=== PATIENT | female | born 1965 | race Caucasian/White ===

== ENCOUNTER 2019-07-11 12:37 | Outpatient (CLI) | payer MEDICAID, SELFPAY ==
--- NOTE | 2019-07-11 13:02 | CT_ITS ---
WS: [id number] CT CHEST WITH INTRAVENOUS CONTRAST HISTORY: MALIGNANT NEOPLASM OF UPPER LOBE LEFT BRONCHUS OR LUNG TECHNIQUE: Contiguous 5 mm axial imaging performed on the thorax. Coronal and sagittal reformats are submitted. All CT scans at [facility] use at least one of these dose optimization techniq ues: automated exposure control; mA and/or kV adjustment per patient size (includes targeted exams wh ere dose is matched to clinical indication); or iterative reconstruction. CONTRAST: Visipaque 320; 95 mL IV. DLP: 683.68 mGycm COMPARISON: 09/15/2018 and 08/07/2016 Lungs and central airway: Prior LEFT upper lobectomy. There is mild volume loss in the LEFT lung. Sev ere emphysematous changes. Linear areas of groundglass attenuation beginning in the mid and upper LEF T lung and extending inferiorly along its medial aspect. There is diffuse interstitial thickening and bronchial wall thickening with tree-in-bud airspace disease throughout the LEFT lung which is progre ssed. Subpleural 7 mm nodule is unchanged, image 24 of series 3. Hyperexpanded RIGHT lung. Subpleural 5 mm nodule RIGHT lower lobe, image 22 of series 3 is stable. Perifissural nodule also short the min or fissure measures 10 mm. No change. There are a few scattered benign granulomata. Pleura: Normal. No pleural effusion. Heart and pericardium: Normal size heart. No pericardial effusion. Mediastinum and rafiq: Increase in size of the mediastinal and hilar lymph nodes since 09/15/2018. The l argest lymph node at the RIGHT hilum measures 12 mm. Subcarinal lymph node at 12 mm in diameter. Ther e are numerous small lymph nodes in the anterior mediastinum and along the internal mammary artery th at were not present on the prior study. Increase in the amount of lymphoid tissue at the LEFT hilum. Vessels: Mild atherosclerosis of aorta. Pulmonary artery size is normal. Chest wall and lower neck: No soft tissue masses. Upper abdomen: No metastatic disease identified within the visualized liver. Gallbladder and spleen a re negative. There is a small stable nodule measuring 1.3 cm in the LEFT adrenal gland. No adrenal no dule in the RIGHT. Osseous structures: Increase in thoracic kyphosis. Degenerative disc disease throughout the thoracic spine. No osteoblastic or osteolytic disease. CT/CT chest w con* [id number] IMPRESSION: 1. Status post LEFT upper lobectomy. 2. Diffuse scattered opacifications with interstitial thickening, nodules and tree-in-bud opacification throughout the LEFT lung. The nodules have remained s table but the tree-in-bud airspace disease and groundglass attenuation is new. Favor inflammatory disease but metastatic lymphangitic spread should be about a s a possible etiology. 3. Increase in size and number of the mediastinal and hilar lymph nodes. PET/C T may be necessary to evaluate for recurrent neoplastic disease. 4. No metastatic disease within the visualized liver. 5. Stable LEFT adrenal nodule at 1.3 cm. Nodule stable since 08/07/2016.
[2019-07-11] MEDS: iodixanol 320 mg/mL 100mL Btl IV (13:24)
== END 2019-07-11 12:38 | disposition home or self-care (01) ==
PROVIDERS: Family Provider Family Medicine; PCP Family Medicine; Visit Provider Internal Medicine
DX: C34.12 Malignant neoplasm of upper lobe, left bronchus or lung (principal); Z90.2 Acquired absence of lung [part of]; R91.8 Other nonspecific abnormal finding of lung field; D44.12 Neoplasm of uncertain behavior of left adrenal gland
CPT/HCPCS: 71260; Q9967

== ENCOUNTER 2019-07-11 12:57 | Outpatient (CLI) | payer MEDICAID, SELFPAY ==
--- NOTE | 2019-07-11 13:00 | MR_ITS ---
WS: [id number] MRI THORACIC SPINE without contrast. 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 Slight increase in thoracic kyphosis. Degenerative disc disease and osteophytosis in the mid to lower cervical spine. Signal within the cord remains normal. T1-2: Normal. T2-3: Normal. T3-4: Normal. T4-5: Small central disc protrusion. No stenosis. T5-6: Shallow RIGHT paracentral disc protrusion. No stenosis. T6-7: Central disc protrusion without stenosis. T7-8: Moderate central disc protrusion with effacement of CSF and slight deformity of the ventral th ecal sac. Similar to the prior study. T8-9: Moderate-sized central disc protrusion with contact on the cord. There is also facet joint art hritis causing mild effacement of the posterior lateral CSF. Mild central and RIGHT foraminal stenosi s. T9-10: Osteophytic ridging with effacement of ventral CSF. There is a LEFT paracentral disc protrusi on resulting in mild stenosis. Mild central with moderate foraminal stenosis on the LEFT. T10-11: Small RIGHT paracentral disc protrusion with effacement of CSF. Mild central stenosis. T11-12: No stenosis. Paravertebral soft tissues are negative. MR/MR thoracic spin wo con* [id number] IMPRESSION: 1. Moderate thoracic spondylitic changes. No high-grade stenosis. 2. Multilevel disc protrusions with areas of stenosis and facet arthritis are stable. 3. Most significant disc intrusions are centrally at T7-8 and T8-9. No progres edda since the prior study. 4. Mild central stenosis from T8-9 to T10-11. 5. Moderate LEFT foraminal stenosis at T9-10.
== END 2019-07-11 12:58 | disposition home or self-care (01) ==
LOC: RADWPI 12:58
PROVIDERS: Family Provider Family Medicine; PCP Family Medicine; Visit Provider Licensed Practical Nurse
DX: M51.04 Intervertebral disc disorders with myelopathy, thoracic region (principal); M51.24 Other intervertebral disc displacement, thoracic region; M48.04 Spinal stenosis, thoracic region
CPT/HCPCS: 72146

== ENCOUNTER 2019-09-01 13:01 | Outpatient (CLI) | payer MEDICAID, SELFPAY ==
--- NOTE | 2019-09-01 13:00 | MR_ITS ---
WS: [id number] MRI CERVICAL SPINE HISTORY: M43.02 Spondylolysis, cervical region COMPARISON: 06/18/2012 Straightening of the normal cervical lordosis. No marrow edema or fracture. Advanced degenerative disc disease and disc space narrowing at C5-6 and C6-7 with osteophytes. Craniocervical junction, C1 and C2 relationship, odontoid process and soft tissues are normal. C2-C3: Very shallow central disc protrusion with no stenosis. C3-C4: Mild osteophytic ridging and very shallow central disc protrusion without stenosis. C4-C5: Mild annular disc bulging and osteophytic ridging. No significant stenosis. Very minimal narro wing of the LEFT foramen. C5-C6: Diffuse osteophytic ridging with disc osteophyte complexes bilaterally, LEFT greater than RIGH T. Encroachment upon the ventral thecal sac by osteophyte disease. Anterior and posterior effacement of CSF. There is cord contact centrally and LEFT paracentral by disc osteophyte disease. Moderate yari tral and bilateral foraminal stenosis. C6-C7: Diffuse osteophytic ridging and disc bulging. Contact on the ventral thecal sac with disc oste ophyte complexes extending into the foramen. Moderate central and bilateral foraminal stenosis. There is significant displacement of the nerve roots in the LEFT foramen. C7-T1: Shallow central disc protrusion. Small foraminal osteophytes without significant stenosis. There is a soft tissue nodule just to the RIGHT of the trachea at the thoracic inlet which is been pr esent on prior studies. Stable since 2013. MR/MR cervical spin wo con* [id number] IMPRESSION: 1. Moderate to severe spondylitic changes in the cervical spine. Most signific ant at C5-6 and C6-7. 2. Osteophytic ridging and disc protrusions at C5-6 and C6-7 resulting in mode rate central and bilateral foraminal stenosis. Slightly greater stenosis and di sc osteophyte encroachment into the LEFT foramen. 3. Mild LEFT foraminal narrowing at C4-5.
--- NOTE | 2019-09-01 14:36 | XR_ITS ---
WS: [id number] Thoracic spine, 3 views, 09/01/2019 Clinical Data: THORACIC DISC DZ Comparison: None. Findings: No compression fractures are seen. The disc heights are normal. Osteoarthritic spurring is moderate throughout the thoracic vertebral bodies. The disc heights are no rmal. There are no compression fractures. There is diffuse osteoporosis. The paravertebral areas are unremarkable. XR/XR thoracic spine 3V* [id number] Impression: 1. Diffuse osteoporosis. 2. Mild osteoarthritic change of the thoracic vertebral bodies.
--- NOTE | 2019-09-01 14:36 | XR_ITS ---
WS: [id number] Lateral views of cervical spine in the flexion, extension and neutral positions. 09/01/2019 Clinical Data: CERVICAL PAIN Comparison: None. Findings: There is anterior and posterior osteoarthritic spurring at C5, C6 and C7. Degenerative disc narrowing is present at C5-C6 and C6-C7. No compression fractures are seen. There is no prevertebral soft tiss ue swelling. No subluxation is present. Flexion and extension there is no limitation of motion or sub luxation. XR/XR cervical spine fl/ex [id number] Impression: 1. Osteoarthritis and degenerative disc disease from C5 through C7. 2. Negative for limitation of motion or subluxation on flexion or extension.
== END 2019-09-01 13:02 | disposition home or self-care (01) ==
PROVIDERS: PCP Family Medicine; Visit Provider Licensed Practical Nurse
DX: M43.02 Spondylolysis, cervical region (principal); M51.34 Other intervertebral disc degeneration, thoracic region; M81.0 Age-related osteoporosis without current pathological fracture; M47.812 Spondylosis without myelopathy or radiculopathy, cervical region; M50.323 Other cervical disc degeneration at C6-C7 level; M50.223 Other cervical disc displacement at C6-C7 level; M25.78 Osteophyte, vertebrae
CPT/HCPCS: 72040; 72072; 72141

== ENCOUNTER → 2019-09-27 14:13 | Outpatient (BNVA) | payer MEDICAID, SELFPAY | PROVIDERS: PCP Family Medicine; Visit Provider Family Medicine | DX: R30.0 Dysuria (principal) | CPT/HCPCS: 81000 ==

== ENCOUNTER → 2019-11-17 12:37 | Outpatient (BNVA) | payer MEDICAID, SELFPAY | PROVIDERS: PCP Family Medicine; Referring Provider Licensed Practical Nurse; Visit Provider Anesthesiology Pain Medicine | DX: M50.90 Cervical disc disorder, unspecified, unspecified cervical region (principal); M54.12 Radiculopathy, cervical region; M50.00 Cervical disc disorder with myelopathy, unspecified cervical region; M51.9 Unspecified thoracic, thoracolumbar and lumbosacral intervertebral disc disorder; M48.061 Spinal stenosis, lumbar region without neurogenic claudication; M54.16 Radiculopathy, lumbar region; M51.04 Intervertebral disc disorders with myelopathy, thoracic region; M54.9 Dorsalgia, unspecified | CPT/HCPCS: 99204 ==

== ENCOUNTER → 2019-12-06 12:34 | Outpatient (BNVA) | payer MEDICAID, SELFPAY | PROVIDERS: PCP Family Medicine; Visit Provider Family Medicine | DX: R30.9 Painful micturition, unspecified (principal) | CPT/HCPCS: 81000; 87086 ==

== ENCOUNTER 2019-12-15 12:57 | Outpatient (CLI) | payer MEDICAID, SELFPAY ==
--- NOTE | 2019-12-15 13:22 | CT_ITS ---
WS: [id number] CT scan of the chest with IV contrast, additional two-dimensional coronal and sagittal reconstruction was performed. 12/15/2019 Clinical Data: MALIGNANT NEOPLASM OF LARYNX, LEFT UPPER LOBE Comparison: CT chest, 07/11/2019. DLP: 671.[address] scans at [facility] use at least one of these dose optimization techniques: automat ed exposure control; mA and/or kV adjustment per patient size (includes targeted exams where dose is matched to clinical indication); or iterative reconstruction. Findings: In the right lower lobe posteriorly there is mass measuring 2.1 cm with irregular margins. This was n ot present before and may represent recurrent recurrent carcinoma. The left upper lobe no longer show s groundglass infiltrates. There are still scattered nodules throughout the lungs which are unchanged . There is anterior mediastinal and middle mediastinal adenopathy unchanged. A left upper lobectomy s hows scarring and volume loss. The heart size is normal with no pericardial effusion. No pneumonia or pneumothorax is seen. Trachea bifurcates normally into the bronchi. The pulmonary arterial system an d thoracic aorta demonstrate no abnormalities or dilatations. There is no axillary or significant med iastinal adenopathy. The upper abdomen shows no lesions within the visualized liver. The left adrenal nodule remains uncha nged. The bony thorax shows only osteoarthritis of the thoracic vertebral bodies with no metastatic d isease. CT/CT chest w con* [id number] Impression: 1. 2.1 cm right lower lobe mass which has developed since the prior scan and co uld represent metastatic disease but inflammatory change and atelectasis could also cause this. 2. No change in scattered nodules. 3. Clearing of tree-in-bud airway disease of the left upper lobe. 4. No change in anterior middle mediastinal lymph nodes. 5. Left upper lobectomy.
[2019-12-15] MEDS: iohexol 300 mg/mL 100 mL Btl IV (13:48)
== END 2019-12-15 12:58 | disposition home or self-care (01) ==
LOC: RADWPI 13:02
PROVIDERS: PCP Family Medicine; Visit Provider Internal Medicine
DX: C34.12 Malignant neoplasm of upper lobe, left bronchus or lung (principal); Z85.21 Personal history of malignant neoplasm of larynx; G89.29 Other chronic pain; R91.8 Other nonspecific abnormal finding of lung field
CPT/HCPCS: 71260; Q9967

== ENCOUNTER → 2019-12-23 09:31 | Outpatient (BNVA) | payer MEDICAID, SELFPAY | PROVIDERS: PCP Family Medicine; Visit Provider Anesthesiology Pain Medicine | DX: Z01.419 Encounter for gynecological examination (general) (routine) without abnormal findings (principal); M48.061 Spinal stenosis, lumbar region without neurogenic claudication; M54.16 Radiculopathy, lumbar region; M51.9 Unspecified thoracic, thoracolumbar and lumbosacral intervertebral disc disorder; M51.04 Intervertebral disc disorders with myelopathy, thoracic region; M54.9 Dorsalgia, unspecified; M50.00 Cervical disc disorder with myelopathy, unspecified cervical region; M54.12 Radiculopathy, cervical region; M50.90 Cervical disc disorder, unspecified, unspecified cervical region | CPT/HCPCS: 88175; 99214 ==

== ENCOUNTER → 2020-01-20 12:35 | Outpatient (BNVA) | payer MEDICAID, SELFPAY | PROVIDERS: PCP Family Medicine; Visit Provider Anesthesiology Pain Medicine | DX: G89.29 Other chronic pain (principal); M51.04 Intervertebral disc disorders with myelopathy, thoracic region; M51.9 Unspecified thoracic, thoracolumbar and lumbosacral intervertebral disc disorder; M48.061 Spinal stenosis, lumbar region without neurogenic claudication; M54.16 Radiculopathy, lumbar region; M54.9 Dorsalgia, unspecified; M50.00 Cervical disc disorder with myelopathy, unspecified cervical region; M54.12 Radiculopathy, cervical region; M50.90 Cervical disc disorder, unspecified, unspecified cervical region | CPT/HCPCS: 99213; 99214 ==

== ENCOUNTER 2020-04-03 13:11 | Outpatient (CLI) | payer MEDICAID, SELFPAY ==
--- NOTE | 2020-04-03 13:19 | CT_ITS ---
WS: [id number] CT CHEST WITH INTRAVENOUS CONTRAST HISTORY: ABNORMAL CT CHEST, FOLLOW UP LUNG CANCER TECHNIQUE: Contiguous 5 mm axial imaging performed on the thorax. Coronal and sagittal reformats are submitted. All CT scans at [facility] use at least one of these dose optimization techniq ues: automated exposure control; mA and/or kV adjustment per patient size (includes targeted exams wh ere dose is matched to clinical indication); or iterative reconstruction. CONTRAST: Omnipaque 300; 95 mL IV. DLP: 661.5 mGycm COMPARISON: 12/15/2019 and 07/11/2019. Lungs and central airway: Status post LEFT upper lobectomy. There are numerous bilateral scattered op acifications throughout both lungs. Some of these opacifications are nodule and a tree-in-bud distrib ution others are more spiculated and ill-defined. Previously described larger opacification at the [facility] lung base on 12/15/2019 is no longer present. Increasing size of numerous opacifications measuring up to 10 mm. Most significant in the central LEFT lung. Pleura: Normal. No pleural effusion. Heart and pericardium: Normal size heart with no pericardial effusion. Mediastinum and rafiq: Mediastinal and hilar lymph nodes. There are numerous lymph nodes in the anteri or mediastinum, paratracheal and hilar regions. The largest lymph node at the RIGHT hilum measures 13 mm in diameter. Overall there has been slight increase in size and number of the lymph nodes. Vessels: Atherosclerosis of aorta. Chest wall and lower neck: No soft tissue masses. Upper abdomen: Long-term stability 12 mm LEFT adrenal nodule. No metastatic disease within the liver. Osseous structures: Degenerative spondylitic changes in the lumbar spine. No fractures or bone destru ction. CT/CT chest w con* [id number] IMPRESSION: 1. Status post LEFT upper lobectomy. 2. Bilateral numerous subcentimeter spiculated nodules, opacifications and fam e-in-bud airspace disease. The most concerning opacification at the RIGHT lung base seen on the prior study has resolved. The opacifications otherwise today h ave progressed. Differential includes metastatic disease, septic emboli and pne umonitis and endobronchial pneumonia. 3. Slight increase in size and number of the mediastinal and hilar lymph nodes . The largest at the RIGHT hilum now measures 13 mm in diameter. 4. Small hiatal hernia. 5. Stable LEFT adrenal nodule.
[2020-04-03] MEDS: iohexol 300 mg/mL 100 mL Btl IV (13:55)
== END 2020-04-03 13:12 | disposition home or self-care (01) ==
LOC: RADWPI 13:13
PROVIDERS: PCP Family Medicine; Visit Provider Internal Medicine
DX: Z85.21 Personal history of malignant neoplasm of larynx (principal); C34.12 Malignant neoplasm of upper lobe, left bronchus or lung; G89.29 Other chronic pain; K44.9 Diaphragmatic hernia without obstruction or gangrene; Z90.2 Acquired absence of lung [part of]
CPT/HCPCS: 71260; Q9967

== ENCOUNTER 2020-08-22 10:22 | Outpatient (CLI) | payer MEDICAID, SELFPAY ==
--- NOTE | 2020-08-22 10:46 | CT_ITS ---
WS: [id number] CT CHEST WITH INTRAVENOUS CONTRAST HISTORY: LUNG CANCER AND LARYNX TECHNIQUE: Contiguous 5 mm axial imaging performed on the thorax. Coronal and sagittal reformats are submitted. All CT scans at [facility] use at least one of these dose optimization techniq ues: automated exposure control; mA and/or kV adjustment per patient size (includes targeted exams wh ere dose is matched to clinical indication); or iterative reconstruction. CONTRAST: Omnipaque 300; 95 mL IV. DLP: 690.34 mGycm COMPARISON: 04/03/2020 Lungs and central airway: Status post LEFT upper lobectomy. Continued slow improvement in the aeratio n of both lungs since 04/03/2020 and 12/15/2019. Majority of the scattered opacifications and tree-in-b ud airspace disease is improving. There are a few residual persistent opacifications and reticulation s. There are several bilateral multilobar pulmonary nodules reidentified. The largest nodule is spicu lated measuring 9 mm in the LEFT lung. Pleura: Normal. No pleural effusion. Heart and pericardium: Normal size heart with no pericardial effusion. Mediastinum and rafiq: Small stable mediastinal and hilar lymph nodes. Largest lymph node at the RIGHT hilum measures 10 mm. Slight decrease in size from 13 mm on 04/03/2020. No new or increasing lymphade nopathy. Vessels: Mild atherosclerosis aorta. Normal size pulmonary artery. Chest wall and lower neck: No soft tissue masses. Upper abdomen: LEFT adrenal nodule measures 12 mm. Long-term stability, stable since at least 2017. V isualized liver is negative. RIGHT adrenal gland normal. Osseous structures: Advanced degenerative disc disease and osteophytosis in the thoracic spine. CT/CT chest w con* [id number] IMPRESSION: 1. Continued slow improvement of bilateral pulmonary opacifications since 12/14 and 04/03/2020. There are additional nodules and groundglass opacification s which need further evaluation. Recommend continued follow-up to ensure contin ued improvement. Recommend chest CT follow-up in 3 months. 2. Stable LEFT adrenal nodule at 12 mm. 3. Slight decrease in size of the mediastinal and hilar lymph nodes. Largest n ow measures 10 mm at the RIGHT hilum. 4. Chronic emphysema. 5. Prior LEFT upper lobectomy.
[2020-08-22] MEDS: iohexol 300 mg/mL 100 mL Btl IV (11:06)
== END 2020-08-22 10:23 | disposition home or self-care (01) ==
PROVIDERS: PCP Family Medicine; Visit Provider Internal Medicine
DX: Z85.21 Personal history of malignant neoplasm of larynx (principal); C34.12 Malignant neoplasm of upper lobe, left bronchus or lung; G89.29 Other chronic pain; Z90.2 Acquired absence of lung [part of]; J43.9 Emphysema, unspecified; D49.7 Neoplasm of unspecified behavior of endocrine glands and other parts of nervous system
CPT/HCPCS: 71260; Q9967

== ENCOUNTER → 2020-09-18 10:21 | Outpatient (BNVA) | payer MEDICAID, SELFPAY | PROVIDERS: PCP Family Medicine; Visit Provider Nurse Practitioner Family | DX: Z20.822 Contact with and (suspected) exposure to COVID-19 (principal) | CPT/HCPCS: 87635 ==

== ENCOUNTER 2021-02-28 12:52 | Outpatient (CLI) | payer MEDICAID, SELFPAY ==
--- NOTE | 2021-02-28 | CT_ITS ---
WS: [id number] CT CHEST TECHNIQUE: Contrast enhanced CT of the chest with coronal and sagittal reformatted images. CLINICAL INFORMATION: NAIF MALIGNANT NEOPLASM, NEOPLASM LARYNX COMPARISON: CT August 22, 2020 and PET/CT April 21, 2020. CT chest April 03, 2020 DLP: 657.[address] scans at [facility] use at least one of these dose optimization techniques: automated e xposure control; mA and/or kV adjustment per patient size (includes targeted exams where dose is matc hed to clinical indication); or iterative reconstruction. FINDINGS: Moderate chronic emphysematous changes. Prior left upper lobectomy. Stable 8 mm spiculated nodule abo ut the left hilum. Scattered bilateral groundglass opacities likely infectious or inflammatory simila r to previous with additional scattered micronodular tree-in-bud opacities. Overall this is improved since April 03, 2020. A few new hazy groundglass opacities in right upper lobe anteriorly. Promine nt anterior mediastinal lymph nodes appear unchanged. Slightly enlarged right hilar lymph node appear s stable. No progressive lymphadenopathy. Normal caliber thoracic aorta. Aortic calcification. Proximal main pulmonary arteries are normal. Sma ll esophageal hiatal hernia. Fatty atrophy of the pancreas. Right adrenal gland is normal. Low-attenu ation nodule left adrenal gland measuring 11 mm likely adenoma is stable. Mild hepatomegaly. Normal s pleen. Hypertrophic changes thoracic spine. Moderate spondylitic changes. A few small disc osteophyte comple xes in the mid and lower thoracic spine. CT/CT chest w con* [id number] IMPRESSION: 1. Prior postoperative changes left upper lobectomy. 2. Spiculated opacity at the left hilum measuring 8 mm is unchanged compared t o August 22, 2020. This also appears stable since April 03, 2020. Recommend 6 month follow-up. 3. Similar-appearing scattered hazy groundglass infiltrates and tree-in-bud in filtrates likely infectious or inflammatory. A few new hazy ground glass infilt rates right upper lobe. Overall opacities are improved since April 03, 2020. 4. Persistent slightly enlarged anterior mediastinal, peribronchial, and right hilar lymph nodes are unchanged. No progressive lymphadenopathy. 5. Stable left adrenal nodule measuring 11 mm most likely adenoma.
[2021-02-28] MEDS: iohexol 300 mg/mL 100 mL Btl IV (15:18)
== END 2021-02-28 12:53 | disposition home or self-care (01) ==
PROVIDERS: PCP Family Medicine; Visit Provider Nurse Practitioner Gerontology
DX: Z85.21 Personal history of malignant neoplasm of larynx (principal); C34.12 Malignant neoplasm of upper lobe, left bronchus or lung; G89.29 Other chronic pain; Z90.2 Acquired absence of lung [part of]; D49.7 Neoplasm of unspecified behavior of endocrine glands and other parts of nervous system
CPT/HCPCS: 71260; Q9967

== ENCOUNTER 2021-09-02 14:41 | Outpatient (CLI) | payer MEDICAID, SELFPAY ==
--- NOTE | 2021-09-02 14:58 | CT_ITS ---
WS: [id number] CT CHEST WITH INTRAVENOUS CONTRAST HISTORY: ABNORMAL WEIGHT LOSS/LUNG CA RESTAGING TECHNIQUE: Contiguous 5 mm axial imaging performed on the thorax. Coronal and sagittal reformats are submitted. All CT scans at [facility] use at least one of these dose optimization techniques: automated exposure control; mA and/or kV adjustment per patient size (includes targeted exams where dose is matched to clinical indication); or iterative reconstruction. CONTRAST: Omnipaque 350; 95 mL IV. DLP: 575.27 mGy.cm COMPARISON: 02/28/2021 Lungs and central airway: Status post LEFT upper lobectomy. There are 2 spiculated nodules adjacent t o the LEFT hilum which have been stable since at least 04/03/2020. The more superior nodule measures 1 0 mm. The more inferior nodule measuring 9 mm. There are additional scattered areas of groundglass op acification and nodules which are stable. No enlarging nodules. Pleura: Normal. No pleural effusion. Heart and pericardium: Mild cardiac enlargement. LEFT atrial enlargement. No effusion. Mediastinum an d rafiq: Mediastinal and hilar lymph nodes are unchanged. There are mildly enlarged lymph nodes in the prevascular space, RIGHT paratracheal and at the hilar regions. These lymph nodes measure up to 12 m m in diameter, greatest involving the RIGHT hilum. No significant increase in size since the most rec ent exam. Vessels: Atherosclerosis aorta. Normal size pulmonary artery. Chest wall and lower neck: No soft tissue masses. Upper abdomen: No change in the LEFT adrenal nodule measuring 12 mm in diameter. Stable since 2017. R IGHT adrenal gland is negative. No metastatic lesions are evident in the liver. Osseous structures: Thoracic spondylosis. No metastatic lesions are noted. CT/CT chest w con* [id number] IMPRESSION: 1. Status post LEFT upper lobectomy. 2. There are 2 slightly spiculated nodules which are stable at the LEFT hilum. The largest measures 10 mm. Additional scattered groundglass opacifications an d other nodules are stable over several years. Recommend continued close follow -up. 3. Indeterminate but stable distal and hilar lymph nodes. 4. Advanced chronic centrilobular emphysema. 5. Stable LEFT adrenal nodule.
[2021-09-02 15:40] LABS: Basophils % 0.4 %; Eosinophils # 0.3 10^3/uL (0.0-0.8); Eosinophils % 4.1 %; Hematocrit 40.1 % (37.0-47.0); Hemoglobin 13.3 g/dL (11.5-15.3); Lymphocytes # 1.7 10^3/uL (0.8-4.8); Lymphocytes % 24.1 %; Mean Corpuscular HGB Conc 33.2 g/dL (30.0-36.0); Mean Corpuscular Hemoglobin 28.7 pg (28.0-34.0); Mean Corpuscular Volume 86.4 fl (81-99); Mean Platelet Volume 8.7 fL (7.4-10.4); Monocytes # 0.4 10^3/uL (0.2-0.9); Neutrophils # 4.59 10^3/uL (1.8-7.7); Neutrophils % 65.1 %; Nucleated Red Blood Cells % 0 %; Platelet Count 389 10^3/cmm (130-400); Red Blood Count 4.64 10^6/uL (4.1-5.3); Red Cell Distribution Width 11.9 % (12.1-15.1); White Blood Count 7.1 10^3/uL (4.0-10.0)
[2021-09-02] MEDS: iohexol 350 mg/mL 100 mL Btl IV (16:07)
== END 2021-09-02 14:42 | disposition home or self-care (01) ==
PROVIDERS: PCP Family Medicine; Visit Provider Internal Medicine
DX: R63.4 Abnormal weight loss (principal); Z85.21 Personal history of malignant neoplasm of larynx; C34.12 Malignant neoplasm of upper lobe, left bronchus or lung; Z90.2 Acquired absence of lung [part of]
CPT/HCPCS: 71260; 85025

== ENCOUNTER 2022-03-31 13:52 | Outpatient (CLI) | payer MEDICARE, MEDICAID, SELFPAY ==
--- NOTE | 2022-03-31 | CT_ITS ---
WS: [id number] CT CHEST TECHNIQUE: Contrast enhanced CT of the chest with coronal and sagittal reformatted images. CLINICAL INFORMATION: LUNG CANCER COMPARISON: CT chest September 02, 2021 DLP: 235.[address] scans at [facility] use at least one of these dose optimization techniques: automated e xposure control; mA and/or kV adjustment per patient size (includes targeted exams where dose is matc hed to clinical indication); or iterative reconstruction. FINDINGS: Prior postoperative changes LEFT upper lobectomy. Advanced chronic emphysematous changes. Stable spic ulated LEFT hilar nodules measuring 9 mm with more superior nodule measures 10 mm. These are unchange d from previous. Small subpleural nodule LEFT upper lobe measuring 5 mm. A few scattered additional s ubcentimeter opacities are unchanged. 7 mm hazy nodule RIGHT upper lobe is unchanged. Normal caliber thoracic aorta. Aortic calcification. Proximal main pulmonary arteries are normal. Pro minent anterior mediastinal and hilar lymph nodes are unchanged. Normal caliber descending thoracic a tello. No axillary lymphadenopathy. Stable 11 mm LEFT adrenal nodule. Small esophageal hiatal hernia. Normal spleen. RIGHT adrenal gland is normal. Upper abdominal aorta is normal. CT/CT chest w con* [id number] IMPRESSION: 1. No significant change in the 2 spiculated LEFT hilar nodules largest measur ing 10 mm superiorly. 2. Prominent anterior mediastinal and hilar lymph nodes are unchanged. 3. Stable scattered bilateral subcentimeter nodules are stable. 4. Chronic emphysematous changes. 5. Stable LEFT adrenal nodule measuring 11 mm. 6. Small esophageal hiatal hernia.
[2022-03-31] MEDS: iohexol 350 mg/mL 500 mL Btl (per mL) IV (14:20)
== END 2022-03-31 13:53 | disposition home or self-care (01) ==
PROVIDERS: PCP Family Medicine; Visit Provider Internal Medicine
DX: C34.90 Malignant neoplasm of unspecified part of unspecified bronchus or lung (principal); R91.8 Other nonspecific abnormal finding of lung field; E27.9 Disorder of adrenal gland, unspecified; K44.9 Diaphragmatic hernia without obstruction or gangrene; Z90.2 Acquired absence of lung [part of]; I70.0 Atherosclerosis of aorta
CPT/HCPCS: 71260; Q9967

== ENCOUNTER → 2022-06-25 14:35 | Outpatient (BNVA) | payer MEDICARE, MEDICAID, SELFPAY | PROVIDERS: PCP Family Medicine; Visit Provider Family Medicine | DX: F31.75 Bipolar disorder, in partial remission, most recent episode depressed (principal); E03.9 Hypothyroidism, unspecified; G62.9 Polyneuropathy, unspecified; F31.9 Bipolar disorder, unspecified; J44.9 Chronic obstructive pulmonary disease, unspecified | CPT/HCPCS: 80053; 80175; 84439; 84443; 85025 ==

== ENCOUNTER → 2022-07-21 10:54 | Outpatient (BNVA) | payer MEDICARE, MEDICAID, SELFPAY | PROVIDERS: PCP Family Medicine; Visit Provider Family Medicine | DX: E03.9 Hypothyroidism, unspecified (principal) | CPT/HCPCS: 84443 ==

== ENCOUNTER → 2022-10-29 14:41 | Outpatient (BNVA) | payer MEDICARE, MEDICAID, SELFPAY | PROVIDERS: PCP Family Medicine; Visit Provider Family Medicine | DX: F31.75 Bipolar disorder, in partial remission, most recent episode depressed (principal); G62.9 Polyneuropathy, unspecified; E03.9 Hypothyroidism, unspecified | CPT/HCPCS: 80175; 84443 ==

== ENCOUNTER → 2023-01-21 15:10 | Outpatient (BNVA) | payer MEDICARE, MEDICAID, SELFPAY | PROVIDERS: PCP Family Medicine; Visit Provider Family Medicine | DX: J06.9 Acute upper respiratory infection, unspecified (principal); R50.9 Fever, unspecified; G62.9 Polyneuropathy, unspecified; E03.9 Hypothyroidism, unspecified; M54.12 Radiculopathy, cervical region; D69.6 Thrombocytopenia, unspecified; F31.75 Bipolar disorder, in partial remission, most recent episode depressed; J44.9 Chronic obstructive pulmonary disease, unspecified | CPT/HCPCS: 84443; 85025 ==

== ENCOUNTER 2023-06-20 17:24 | Inpatient (IN) | payer MEDICARE, MEDICAID, SELFPAY ==
[2023-06-20] VITALS (42 sets, daily range): BP systolic 105–153; BP diastolic 62–83; PULSE 71–96; RESP 14–32; TEMP 36.8–37.8; O2SAT 91–100; BMI 22.8
--- NOTE | 2023-06-20 17:57 | XRR_ITS ---
PROCEDURE INFORMATION: Exam: XR Chest Exam date and time: 06/20/2023 6:03 PM Age: 57 years old Clinical indication: Cough and shortness of breath; Prior surgery; Surgery date: 6+ months; Surgery type: Left upper lobe resection; Patient HX: Cough with SOB. Copd. History of esophageal and lung cancer. ; Additional info: SOB, hypoxia TECHNIQUE: Imaging protocol: Radiologic exam of the chest. Views: 1 view. COMPARISON: CT chest w con* [id number] 03/31/2022 2:31 PM FINDINGS: Lungs: There are pulmonary parenchymal calcifications consistent with remote granulomatous organism exposure. Pleural spaces: Unremarkable. No pleural effusion. No pneumothorax. Heart/Mediastinum: There are calcified mediastinal and perihilar lymph nodes consistent with prior granulomatous exposure. Vasculature: There is calcified plaque in the aortic arch. Bones/joints: Unremarkable. XR/XR chest 1V portable [id number] IMPRESSION: No evidence for acute cardiopulmonary disease.
--- NOTE | 2023-06-20 17:57 | ECG_ITS ---
[facility] Test Date: 2023-06-20 Pat Name: Mayte Hummel Department: Room: 254 Gender: Female Jailkeeper: : 1965 Requested By: Jonas Aguilar Order Number: [id number] Hewitt MD: Lee Ann Blanco M.D. Measurements Intervals [place] Rate: 96 P: 76 WV: 175 QRS: 81 QRSD: 92 T: 59 QT: 324 QTc: 410 Interpretive Statements SINUS RHYTHM Compared to ECG 01/17/2019 20:24:55 First degree AV block no longer present Electronically Signed On 06-21-2023 22:13:06 CDT by Lee Ann Blanco M.D. [email or web address]
[2023-06-20] MEDS: methylPREDNISolone sod succ 125 mg/2 mL INJ IVP (18:07)
[2023-06-20] MEDS: sodium chloride 0.9% 500 ML 999 ML IV (18:07)
[2023-06-20] MEDS: ipratropium-albuterol 3 mL Neb INHALATION (18:20)
[2023-06-20 18:26] LABS: Base Excess ABG 2.4 mmol/L (-2.0-2.0); Blood Gas Allen Test Pos; Blood Gas Sample Site Radial, right; Blood Gas Sample Type Arterial; Carboxyhemoglobin 3.1 %THgb (0.4-20.1); HCO3 ABG 30.4 mmol/L (22-26); HGB O2 Sat 92.6 % (95-100); Methemoglobin 0.4 % (0.4-1.5); Oxygen Device NC; PO2 ABG 80.3 mmHg (80.0-100.0); PO2 FiO2 Ratio Arterial Blood 0; Total Hemoglobin 13.1 g/dL (12-16)
[2023-06-20 18:28] LABS: ABG PCO2 62.2 mmHg (35-45)
[2023-06-20 18:45] LABS: Basophils % 0.2 %; Eosinophils # 0.1 10^3/uL (0.0-0.8); Eosinophils % 0.5 %; Hematocrit 41.8 % (36-47); Lymphocytes # 0.5 10^3/uL (0.8-4.8); Lymphocytes % 3.3 %; Mean Corpuscular HGB Conc 32.1 g/dL (30-55); Mean Corpuscular Hemoglobin 28.7 pg (27-33); Mean Corpuscular Volume 89.5 fl (85-98); Mean Platelet Volume 8.9 fL (7.4-10.4); Monocytes # 0.5 10^3/uL (0.2-0.9); Monocytes % 3.5 %; Neutrophils # 12.37 10^3/uL (1.8-7.7); Nucleated Red Blood Cells % 0 %; Platelet Count 366 10^3/cmm (157-399); Red Blood Count 4.67 10^6/uL (3.85-5.65); Red Cell Distribution Width 11.9 % (12.1-15.1); White Blood Count 13.46 10^3/uL (3.29-11.43)
[2023-06-20 19:03] LABS: Lactic Sepsis W/Reflex 1.6 mmol/L (0.5-2.2)
--- NOTE | 2023-06-20 19:12 | ED_ITS ---
HPI - SOB/Dyspnea 2 General: Chief Complaint: Shortness of Breath/Dyspnea Stated Complaint: SOB Time Seen by Provider: 06/20/23 17:30 Source: patient and EMS Mode of arrival: EMS Limitations: other (Emotional distress) History of Present Illness: HPI Narrative: Patient very difficult to get history from she just starts talking about her family not living her and her mother dying her dying and how she is very depressed. Patient denies any episode of shortness of breath or anything that really brought her up.. Reports she is at her baseline as far as breathing however physical exam reveals this to likely not be true as she reports she was only using oxygen intermittently. EMS states that when they arrived she was 76% on room air and she was in the bathroom vomiting. Likely had hyperventilation until vomiting. She does wear oxygen at home because her concentrator is too loud and she cannot hear the TV. When she will turn the TV up to hear it her son gets mad and yells at her. She states that with her son and her finding led to her getting sick. Review of Systems 2 General: Reports: ROS unobtainable due to mental status PFSH ED 2 PFSH: Medical History Vitamin D deficiency Essential hypertension GERD with esophagitis COPD, mild Chronic pruritic rash in adult Thoracic disc disease Spinal stenosis of lumbar region with radiculopathy Intervertebral cervical disc disorder with myelopathy, cervical region Intertriginous candidiasis Osteoarthritis, chronic Thoracic disc disease with myelopathy Hypothyroid Moderate persistent reactive airway disease with wheezing with acute exacerbation Polyneuropathy Bipolar disorder (manic depression) History of throat cancer Surgical History Hx of tubal ligation (~1993) Hx of section (~1993) Hx of oral surgery Status post partial removal of lung Left upper lobe lung resection, 11/2017 Family History Grandfather Colon cancer maternal---dx age in 60s Mother Diabetes Thyroid disease Denies family history of Ovarian cancer Heart disease Breast cancer Bleeding disorder Hypertension Uterine cancer Stroke Social History Smoking and tobacco/nicotine status: former use of tobacco/nicotine Alcohol intake: never Substance/Drug Use: never Additional social history: - Tobacco use: former-- quit January 2018 Alcohol use: denies Drug use: denies Adopted: No Household members: none Housing: Manufactured/Mobile home Marital status: / Current occupational status: unemployed Do you think of yourself as: Straight/Heterosexual Physical Exam 2 Const: COMMON NORMALS: no acute distress, average body habitus, patient oriented x3, healthy appearing, alert and well nourished GENERAL APPEARANCE: well kempt and well developed HENMT: COMMON NORMALS: normocephalic, atraumatic, external ears normal and moist oral mucous membranes HEAD & SCALP: normocephalic and atraumatic E XTERNAL EAR: Yes external ears normal Eye: COMMON NORMALS: Equal, round and reactive pupils present, EOMs intact bilaterally and conjunctivae normal CONJUNCTIVA: Yes conjunctivae normal P UPIL: Yes Equal, round and reactive pupils present Neck/C-Spine: COMMON NORMALS: full ROM, no lymphadenopathy and supple Chest: CHEST: Yes Symmetrical chest wall rise and No Surgical scars present (Chest) Resp: EFFORT & INSPECTION: Yes tachypneic, Yes labored, Yes grunting, Yes Actively coughing, Yes retractions and Yes uses accessory muscles A USCULTATION: rales, rhonchi and wheezes Cardio: COMMON NORMALS: regular rate, regular rhythm, S1 normal heart sound present, S2 normal heart sound present, No gallops present (Cardio), No clicks present (Cardio), No murmurs present (Cardio) and No rub (Cardio) RATE: r egular rate RHYTHM: regular rhythm HEART SOUNDS: S1 normal heart sound present, S2 normal heart sound present and no murmurs PERIPHERAL PULSES: o ther (Radial pulses 2+ and symmetric) GI: COMMON NORMALS: Soft to palpation, non-tender and no masses INSPECTION: No abdominal distension PALPATION: Yes Soft to palpation, No Guarding due to palpation present (GI) and No Rebound tenderness present : COMMON NORMALS: Yes no CVA tenderness BLADDER/KIDNEY EXAM: Yes no CVA tenderness Back/Pelvis: COMMON NORMALS: no CVA tenderness Extremity: COMMON NORMALS: normal to inspection, full ROM, capillary refill normal and no clubbing, cyanosis or edema Neuro: COMMON NORMALS: patient oriented x3 SENSORIUM/ORIENTATION: Yes alert Psych: APPEARANCE: Yes well kempt Skin: COMMON NORMALS: no rashes or lesions noted, no wounds, turgor normal and no jaundice GENERAL SKIN EXAM: no rashes or lesions noted and turgor normal Course 2 ED course: Patient hypoxic on her baseline 2 L so ABG was ordered. ABG found to be pH 7.297, pCO2 of 62, pO2 of 80 on 4 L. Patient placed on BiPAP at 14 over 8 and FIO2 28%. Vital Signs: Vital signs: Vital Signs Temperature 98 F 06/21/23 12:00 Pulse Rate 90 06/21/23 15:21 Respiratory Rate 18 06/21/23 15:18 Blood Pressure 118/71 06/21/23 12:00 Pulse Oximetry 97 06/21/23 15:18 Oxygen Delivery Me thod Nasal Cannula 06/21/23 15:18 Oxygen Flow Rate 3 06/21/23 15:18 Fraction of Inspir ed Oxygen 30 06/21/23 08:00 MDM - SOB/Dyspnea Medical Decision Making Vertical historian, appears to have some acute on chronic respiratory failure secondary to COPD. Concern for aspiration pneumonia based on history and chest x-ray. At the least and aspiration pneumonitis. Patient is requiring increased O2 support from baseline as well as requires BiPAP for hypercapnia and respiratory acidosis. pH was 7.3. Discussed with hospitalist and patient will be admitted. Did have to give counseled patient on need for admission as she initially went to go home. Patient though expresses understanding will come in the hospital for the treatment. Medical Records I reviewed the patient's medical records. Lab Data I reviewed the patient's lab results. 06/20/23 18:32 06/21/23 03:26 Labs/Radiology: Radiology Impressions Chest X-Ray 06/20/23 17:57 IMPRESSION: No evidence for acute cardiopulmonary disease. Chest CTA 06/20/23 20:53 IMPRESSION: 1. Negative for pulmonary embolus. 2. Coronary artery atherosclerotic calcifications. 3. Trace left pleural effusion. 4. Scattered mediastinal lymph nodes and hilar lymph nodes measuring up to 17 mm in the left posterolateral mediastinum, nonspecific. 5. Left adrenal 11.4 mm low-density nodule consistent with a benign adenoma. 6. Emphysematous changes. 7. Right lower lobe mild focal atelectasis versus infiltrate. 8. Right middle lobe 5 mm nodule along the undersurface of the minor fissure, similar to prior exam. Left upper lobe 10.4 mm spiculated pulmonary nodule, somewhat more prominent compared to prior exam. Left upper lobe 5.5 mm anterior segment pulmonary nodule, somewhat more prominent compared to prior exam. For patients at low risk (minimal or absent history of smoking and of other known risk factors), recommend CT Chest at 3-6 months, then consider CT Chest at 18-24 months. For patients at high risk (history of smoking or of other known risk factors), recommend CT Chest at 3-6 months, then CT Chest at 18-24 months. (Reference: Sebastian) 9. Scattered thickened left hilar bronchial wall thickening is seen, nonspecific. COMMENTS: The presence of pulmonary emphysema on CT is an independent risk factor for lung cancer. In the absence of a history or active diagnosis of lung cancer, it is recommended that this patient with emphysema be evaluated for enrollment in a low dose CT lung cancer screening program. REFERENCES: Sebastian Agustin, et al. Guidelines for Management of Incidental Pulmonary Nodules Detected on CT Images: From the Fleischner Society 2017. Radiology. 2017;284(1):228-243. Laboratory Results WBC 13.46 10^3/uL (3.29-11.43) H 06/20/23 18:32 RBC 4.67 10^6/uL (3.85-5.65) 06/20/23 18:32 Hgb 13.40 g/dL (11.27-16.99) 06/20/23 18:32 Hct 41.8 % (36-47) 06/20/23 18:32 MCV 89.5 fl (85-98) 06/20/23 18:32 MCH 28.7 pg (27-33) 06/20/23 18:32 MCHC 32.1 g/dL (30-55) 06/20/23 18:32 RDW 11.9 % (12.1-15.1) L 06/20/23 18:32 Plt Count 366 10^3/cmm (157-399) 06/20/23 18:32 MPV 8.9 fL (7.4-10.4) 06/20/23 18:32 Neut % (Auto) 92.0 % 06/20/23 18:32 Lymph % (Auto) 3.3 % 06/20/23 18:32 [place] % (Auto) 3.5 % 06/20/23 18:32 Eos % (Auto) 0.5 % 06/20/23 18:32 Baso % (Auto) 0.2 % 06/20/23 18: Neut # (Auto) 12.37 10^3/uL (1.8-7.7) H 06/20/23 18:32 Lymph # (Auto) 0.5 10^3/uL (0.8-4.8) L 06/20/23 18:32 [place] # (Auto) 0.5 10^3/uL (0.2-0.9) 06/20/23 18: Eos # (Auto) 0.1 10^3/uL (0.0-0.8) 06/20/23 18: Baso # (Auto) 0.0 10^3/uL (0.0-0.1) 06/20/23 18: Nucleated RBC % (auto) 0 % 06/20/23: Nucleated RBCs # 0.0 /100WBC 06/20/23 18:32 Specimen Type Arterial 06/20/23 18:10 Sample Site Radial, right 06/20/23 18:10 ABG pH 7.30 (7.35-7.45) L 06/20/23 18:10 ABG pCO2 62.2 mmHg (35-45) H* 06/20/23 18:10 ABG pO2 80.3 mmHg (80.0-100.0) 06/20/23 18:10 ABG PO2/FiO2 Ratio 0 06/20/23 18:10 ABG HCO3 30.4 mmol/L (22-26) H 06/20/23 18:10 ABG Base Excess 2.4 mmol/L (-2.0-2.0) H 06/20/23 18:10 Samuel Test Pos 06/20/23 18:10 Hematocrit 40.0 % (37-47) 06/20/23 18:10 Hgb O2 Saturation 92.6 % (95-100) L 06/20/23 18:10 Carboxyhemoglobin 3.1 %THgb (0.4-20.1) 06/20/23 18:10 Methemoglobin 0.4 % (0.4-1.5) 06/20/23 18:10 Total Hemoglobin 13.1 g/dL (12-16) 06/20/23 18:10 O2 Delivery Device Nc 06/20/23 18:10 O2 Liters/Min 4.0 % 06/20/23 18:10 FiO2 36.0 % 06/20/23 18:10 Booster Assembler ID [email or web address] 06/20/23 18:10 Sodium 133 mmol/L (136-145) L 06/20/23 18:32 Potassium 5.0 mmol/L (3.5-5.1) 06/20/23 18:32 Chloride 96 mmol/L (98-107) L 06/20/23 18:32 Carbon Dioxide 30 mmol/L (22-29) H 06/20/23 18:32 Anion Gap 12.0 (5-19) 06/20/23 18:32 BUN 6 mg/dL (6-20) 06/20/23 18:32 Creatinine 0.7 mg/dL (0.5-0.9) 06/20/23 18:32 GFR Calculation 85.9 mL/min (90-130) L 06/20/23 18:32 Glucose 138 mg/dL (65-115) H 06/20/23 18:32 Estimat Average Glucose 108 06/20/23 18:32 Hemoglobin A1c 5.4 % (4.0-6.0) 06/20/23 18:32 Calculated Osmolality 276 mOsm/kg (285-295) L 06/20/23 18:32 Lactic Acid 1.6 mmol/L (0.5-2.2) 06/20/23 18:32 Calcium 8.6 mg/dL (8.5-10.5) 06/20/23 18:32 Troponin T 120 Minute 21.67 ng/L (0-10) H 06/20/23 00:32 Delta Troponin T -8.33 ABS# (0-10) L 06/20/23 00:32 NT-Pro-B Natriuret Pep 1394 pg/mL (0-125) H 06/20/23 18:32 Triglycerides 66 mg/dL (0-150) 06/20/23 18:32 Cholesterol 163 mg/dL (0-200) 06/20/23 18:32 LDL Cholesterol, Calc 92 mg/dL (50-129) 06/20/23 18:32 HDL Cholesterol 58 mg/dL (60-100) L 06/20/23 18:32 LDL/HDL Ratio 1.59 RATIO (0.00-3.22) 06/20/23 18:32 Cholesterol/HDL Ratio 2.81 mg/dL (0.0-4.40) 06/20/23 18:32 TSH 4.77 uIU/mL (0.27-4.20) H 06/20/23 18:32 Urine Color Yellow (Yellow) 06/20/23 05:18 Urine Appearance Clear (CLEAR) 06/20/23 05:18 Urine pH 5 (5-7) 06/20/23 05:18 Ur Specific [place] 1.015 (1.005-1.030) 06/20/23 05:18 Urine Protein Neg (Negative) 06/20/23 05:18 Urine Glucose (UA) Norm (Normal) 06/20/23 05:18 Urine Ketones Negative (Negative) 06/20/23 05:18 Urine Blood Trace (Negative) H 06/20/23 05:18 Urine Nitrate Negative (Negative) 06/20/23 05:18 Urine Bilirubin Neg (Negative) 06/20/23 05:18 Urine Urobilinogen Neg mg/dL (Negative) 06/20/23 05:18 Ur Leukocyte Esterase Negative (Negative) 06/20/23 05:18 Urine RBC 0-4 /hpf (0-2) H 06/20/23 05:18 Urine WBC 0-4 /hpf (0-5) H 06/20/23 05:18 Ur Squamous Epith Cells 0-4 /hpf (0-5) H 06/20/23 05:18 Amorphous Sediment Not Reportable 06/20/23 05:18 Urine Bacteria 1+ /hpf (NONE) H 06/20/23 05:18 Adenovirus (PCR) Not detected (NOT DETECT) 06/20/23 02:11 C. pneumoniae DNA (PCR) Not detected (NOT DETECT) 06/20/23 02:11 Coronavirus 229E (PCR) Not detected (NOT DETECT) 06/20/23 02:11 Human Metapneumovir PCR Not detected (NOT DETECT) 06/20/23 02:11 Influenza A (H1) PCR Not detected (NOT DETECT) 06/20/23 02:11 Influ A (H1/09) PCR Not detected (NOT DETECT) 06/20/23 02:11 Influenza A (H3) PCR Not detected (NOT DETECT) 06/20/23 02:11 Influenza Type A (PCR) Not detected (NOT DETECT) 06/20/23 02:11 Influenza Type B (PCR) Not detected (NOT DETECT) 06/20/23 02:11 M. pneumoniae (PCR) Not detected (NOT DETECT) 06/20/23 02:11 Parainfluenza 1 (PCR) Not detected (NOT DETECT) 06/20/23 02:11 Parainfluenza 2 (PCR) Not detected (NOT DETECT) 06/20/23 02:11 Parainfluenza 3 (PCR) Detected (NOT DETECT) A 06/20/23 02:11 Parainfluenza 4 (PCR) Not detected (NOT DETECT) 06/20/23 02:11 RSV Type A (PCR) Not detected (NOT DETECT) 06/20/23 02:11 RSV Type B (PCR) Not detected (NOT DETECT) 06/20/23 02:11 Entero/Rhino (PCR) Not detected (NOT DETECT) 06/20/23 02:11 SARS-CoV-2 (PCR) Not detected (NOT DETECT) 06/20/23 02:11 All radiology interpretation(s) finalized by discharge ED provider radiology interpretation(s): Chest x-ray unremarkable, CT scan showing scattered infiltrates. Critical Care Time 2 Critical Care Time: Critical Care Time: Yes Total Critical Care Time: 32 Attestation: BiPAP management, counseling of patient, consulting other physicians. All exclusive of procedure time. Discharge Plan Discharge Patient Disposition: Admitted As Inpatient Admit Provider: Thomas Fernandez Clinical Impression: Acute exacerbation of chronic obstructive airways disease, Community acquired pneumonia, Acute on chronic respiratory failure with hypoxia and hypercapnia Condition: Stable Discharge Diet: Regular Discharge Activity: Resume usual activity and Oxygen as instructed Coding Level of Care Code ED Wild Animal Caretaker for Tracey Xiong
[2023-06-20 19:13] LABS: Blood Urea Nitrogen 6 mg/dL (6-20); Calcium 8.6 mg/dL (8.5-10.5); Carbon Dioxide 30 mmol/L (22-29); Chloride 96 mmol/L (98-107); Creatinine Clr Calc Pharmacy 72.9355; Glomerular Filtration Rate 85.9 mL/min (90-130); Glucose 138 mg/dL (65-115); NT Pro B Type Natriuretic Pept 1394 pg/mL (0-125); Osmolality Calculated 276 mOsm/kg (285-295); Sodium 133 mmol/L (136-145)
[2023-06-20] MEDS: cefTRIAXone 1,000 MG in sodium chloride 0.9% (plus) 50 ML 100 MG IV (19:54)
[2023-06-20] MEDS: clindamycin 600 MG/50 ML PREMIX 100 MG IV (20:20)
--- NOTE | 2023-06-20 20:53 | CTR_ITS ---
PROCEDURE INFORMATION: Exam: CTA Chest With Contrast Exam date and time: 06/20/2023 10:31 PM Age: 57 years old Clinical indication: Cough and shortness of breath; Prior surgery; Surgery date: 6+ months; Surgery type: Left upper lobe resection; Patient HX: Cough with SOB and hypoxia. History of esophageal and lung cancer. TECHNIQUE: Imaging protocol: Computed tomographic angiography of the chest with contrast. Exam focused on the arteries. 3D rendering (Not supervised by radiologist): MIP and/or 3D reconstructed images were created by the technologist. Radiation optimization: All CT scans at this facility use at least one of these dose optimization techniques: automated exposure control; mA and/or kV adjustment per patient size (includes targeted exams where dose is matched to clinical indication); or iterative reconstruction. Contrast material: OMNI 350; Contrast volume: 55 ml; Contrast route: INTRAVENOUS (IV); COMPARISON: CT chest w con* [id number] 03/31/2022 2:31 PM RADIATION DOSE METRICS: Total DLP (mGy-cm): 278.32 FINDINGS: Pulmonary arteries: Normal. No pulmonary emboli. Aorta: Unremarkable. No aortic aneurysm. No aortic dissection. Lungs: Emphysematous changes. Right lower lobe mild focal atelectasis versus infiltrate. Right middle lobe 5 mm nodule along the undersurface of the minor fissure, similar to prior exam. Left upper lobe 10.4 mm spiculated pulmonary nodule, somewhat more prominent compared to prior exam. Left upper lobe 5.5 mm anterior segment pulmonary nodule, somewhat more prominent compared to prior exam. Scattered thickened left hilar bronchial wall thickening is seen, nonspecific. Pleural spaces: Trace left pleural effusion. Heart: Unremarkable. No cardiomegaly. No pericardial effusion. Coronary arteries: Coronary artery atherosclerotic calcifications. Lymph nodes: Scattered mediastinal lymph nodes and hilar lymph nodes measuring up to 17 mm in the left posterolateral mediastinum, nonspecific, similar to prior exam. Adrenal glands: Left adrenal 11.4 mm low-density nodule consistent with a benign adenoma, similar to prior exam. Bones/joints: Unremarkable. No acute fracture. Soft tissues: Unremarkable. CT/CT angio chest PE protcl [id number] IMPRESSION: 1. Negative for pulmonary embolus. 2. Coronary artery atherosclerotic calcifications. 3. Trace left pleural effusion. 4. Scattered mediastinal lymph nodes and hilar lymph nodes measuring up to 17 mm in the left posterolateral mediastinum, nonspecific. 5. Left adrenal 11.4 mm low-density nodule consistent with a benign adenoma. 6. Emphysematous changes. 7. Right lower lobe mild focal atelectasis versus infiltrate. 8. Right middle lobe 5 mm nodule along the undersurface of the minor fissure, similar to prior exam. Left upper lobe 10.4 mm spiculated pulmonary nodule, somewhat more prominent compared to prior exam. Left upper lobe 5.5 mm anterior segment pulmonary nodule, somewhat more prominent compared to prior exam. For patients at low risk (minimal or absent history of smoking and of other known risk factors), recommend CT Chest at 3-6 months, then consider CT Chest at 18-24 months. For patients at high risk (history of smoking or of other known risk factors), recommend CT Chest at 3-6 months, then CT Chest at 18-24 months. (Reference: Sebastian) 9. Scattered thickened left hilar bronchial wall thickening is seen, nonspecific. COMMENTS: The presence of pulmonary emphysema on CT is an independent risk factor for lung cancer. In the absence of a history or active diagnosis of lung cancer, it is recommended that this patient with emphysema be evaluated for enrollment in a low dose CT lung cancer screening program. REFERENCES: Sebastian Agustin, et al. Guidelines for Management of Incidental Pulmonary Nodules Detected on CT Images: From the Fleischner Society 2017. Radiology. 2017;284(1):228-243.
--- NOTE | 2023-06-20 20:53 | ECG_ITS ---
[facility] Test Date: 2023-06-20 Pat Name: Mayte Hummel Department: Room: Gender: Female Business Asst: : 1965 Requested By: Thomas Fernandez Order Number: [id number] Marcelina MD: Lee Ann Blanco M.D. Measurements Intervals Gage Rate: 79 P: 82 WY: 190 QRS: 75 QRSD: 89 T: 61 QT: 369 QTc: 423 Interpretive Statements SINUS RHYTHM Compared to ECG 01/17/2019 20:24:55 First degree AV block no longer present Electronically Signed On 06-21-2023 22:13:40 CDT by Lee Ann Blanco M.D. [email or web address]
--- NOTE | 2023-06-20 20:59 | P.HP_ITS ---
Providers/Chief Complaint 2 Primary Care Provider: Janna Borges MD Chief Complaint: SOB History of Present Illness Mayte Hummel is a 57 year old female with a past medical history of COPD, past medical history of smoking, history of cancer of the epiglottis, history of lung cancer status post left upper lobe lobectomy, history of borderline personality disorder, currently on methadone, hypothyroidism, chronic back pain, who presents [facility] due to increased anxiety, depression symptoms, and shortness of breath. Currently patient is alert and oriented x 3, following all commands on BiPAP on 28% FiO2, does not appear to be in respiratory distress but during our conversation her O2 sats do drop into the high 80s, coarse wheezing on examination. Patient reports that in the last 5 months she is lost a parent, she is lost her , she has been feeling increasingly depressed, increasingly anxious, she adamantly denies any suicidal ideation, no suicidal thoughts, no homicidal ideation, denies taking any medications more than prescribed, denies any drug use, she is on alprazolam, methadone, Lamictal, gabapentin, she is adamant she uses the medications as prescribed. Initially she had declined complaints of shortness of breath however after more thorough history taking, she also tells me that recently she has been increasingly short of breath, more short of breath with exertion, with a productive cough with fevers, no chills, no chest pain. She quit smoking over 6 years ago, she has a history of lung cancer status post lobectomy, history of laryngeal cancer, upon EMS arrival to her home, she was found to have 76% on room air, she was vomiting in the bathroom, Review of Systems 2 Const: Reports: fever(s) and fatigue Card: Denies: chest pain Resp: Reports: dyspnea GI: Denies: abdominal pain : Denies: flank pain Neuro: Denies: headache(s) Psych: Reports: anxiety, depression, hopelessness and loss of interest; Denies: visual hallucinations, auditory hallucinations, tactile hallucinations, suicidal ideation or homicidal ideation Medications/Allergies Home Medications Medication Instructions Recorded Confirmed Last Taken Type ipratropium 20 mcg-albuterol 100 1 puff inhalation QID PRN 11/03/22 04/23/23 Unknown Rx mcg/actuation mist for inhalation breathing #4 grams (Combivent Respimat) clobetasol 0.05 % topical ointment 1 applic topical BID 30 days #45 01/21/23 04/23/23 Unknown Rx grams prednisone 20 mg tablet 20 mg PO .COMPLEX #20 tabs 01/21/23 04/23/23 Unknown Rx lamotrigine 150 mg tablet 150 mg PO BID #60 tabs 01/30/23 04/23/23 Unknown Rx ipratropium 0.5 mg-albuterol 3 mg See Rx Instructions .Route 02/11/23 04/23/23 Unknown Rx (2.5 mg base)/3 mL nebulization .COMPLEX #540 mL soln albuterol sulfate 90 mcg/actuation 2 puff inhalation Q3H 30 days #18 04/03/23 04/23/23 Unknown Rx aerosol inhaler (Ventolin HFA) grams alprazolam 1 mg tablet 1 mg PO TID PRN anxiety 30 days 04/23/23 04/23/23 Unknown Rx #90 tabs hydroxyzine HCl 25 mg tablet 25 mg PO TID PRN itching #30 tabs 05/15/23 Unknown Rx methadone 10 mg tablet 10 mg PO Q12H 30 days #60 tabs 05/27/23 Unknown Rx gabapentin 300 mg capsule See Rx Instructions .Route 06/01/23 Unknown Rx .COMPLEX #90 caps levothyroxine 88 mcg tablet See Rx Instructions .Route 06/01/23 Unknown Rx .COMPLEX #90 tabs Allergies Allergy/AdvReac Type Severity Reaction Status Date / Time doxycycline Allergy Mild vomiting Verified 04/23/23 13:38 ciprofloxacin [From Cipro] Allergy lips and Verified 04/23/23 13:38 facial swelling Tetracyclic Antidepressants AdvReac mood Verified 04/23/23 13:38 altering PFSH Acute 2 PFSH: Medical History Vitamin D deficiency Essential hypertension GERD with esophagitis COPD, mild Chronic pruritic rash in adult Thoracic disc disease Spinal stenosis of lumbar region with radiculopathy Intervertebral cervical disc disorder with myelopathy, cervical region Intertriginous candidiasis Osteoarthritis, chronic Thoracic disc disease with myelopathy Hypothyroid Moderate persistent reactive airway disease with wheezing with acute exacerbation Polyneuropathy Bipolar disorder (manic depression) History of throat cancer Surgical History Hx of tubal ligation (~1993) Hx of section (~1993) Hx of oral surgery Status post partial removal of lung Left upper lobe lung resection, 11/2017 Family History Grandfather Colon cancer maternal---dx age in 60s Mother Diabetes Thyroid disease Denies family history of Ovarian cancer Heart disease Breast cancer Bleeding disorder Hypertension Uterine cancer Stroke Social History Smoking and tobacco/nicotine status: former use of tobacco/nicotine Alcohol intake: never Substance/Drug Use: never Additional social history: - Tobacco use: former-- quit January 2018 Alcohol use: denies Drug use: denies Adopted: No Household members: none Housing: Manufactured/Mobile home Marital status: / Current occupational status: unemployed Do you think of yourself as: Straight/Heterosexual Vitals/I&O/Wt Last Vital Signs Temp 100.0 F H 06/20/23 17:25 Pulse 80 06/20/23 20:45 Resp 18 06/20/23 20:22 BP 113/73 06/20/23 20:20 Pulse Ox 93 06/20/23 20:45 O2 Del Method BiPAP 06/20/23 19:30 O2 Flow Rate 2 06/20/23 18:30 FiO2 28 06/20/23 20:45 06/20/23 06/20/23 06/20/23 06:59 14:59 22:59 Intake Total 50 / 50 Balance 50 / 50 Weight last 48 hrs Weight 56.699 kg Physical Exam 2 Const: COMMON NORMALS: no acute distress and patient oriented x3 HENMT: COMMON NORMALS: normocephalic HEAD & SCALP: normocephalic Eye: COMMON NORMALS: Equal, round and reactive pupils present and EOMs intact bilaterally Neck/C-Spine: COMMON NORMALS: full ROM and no lymphadenopathy Lymph: LYMPHATIC: no lymphadenopathy noted Resp: COMMON NORMALS: normal respiratory effort, No retractions and No use of accessory muscles AUSCULTATION: crackles and wheezes Cardio: COMMON NORMALS: no JVD, regular rate, regular rhythm, S1 normal heart sound present and S2 normal heart sound present RATE: regular rate RHYTHM: regular rhythm HEART SOUNDS: S1 normal heart sound present and S2 normal heart sound present GI: COMMON NORMALS: Normal to inspection, nondistended, normoactive bowel sounds present, Soft to palpation and non-tender Extremity: COMMON NORMALS: no calf tenderness and no pedal edema Neuro: COMMON NORMALS: patient oriented x3, CN's II-XII intact bilaterally and moves all extremities Psych: COMMON NORMALS: mental status grossly normal, denies hallucinations, denies homicidal ideation and denies suicidal ideation Data 06/20/23 18:32 06/20/23 18:32 A&P Assessment and plan (1) Acute respiratory failure with hypoxia and hypercapnia: (2) COPD exacerbation: (3) Aspiration pneumonia: (4) Hypothyroid: Qualifiers: Hypothyroidism type: acquired Qualified Code(s): E03.9 - Hypothyroidism, unspecified Plan Acute hypoxic respiratory failure ? Likely secondary to COPD ? Possible aspiration pneumonia/aspiration pneumonitis given her episode of nausea vomiting ? Plan ? Monitor on MedSurg ? Continue BiPAP ? Continue Rocephin ? Solu-Medrol 40 mg IV push every 8 hours ? DuoNeb ? Budesonide ? Sputum cultures ? Respiratory viral panel - CT angiogram the chest ? Continue home levothyroxine ? Continue home alprazolam, gabapentin, Lamictal, methadone ? Patient is a DNR/DNI confirmed with with patient multiple times ? Lovenox for DVT prophylaxis Attestations 2 Medical Necessity Statement*: Patient requires hospitalization, inpatient, greater than 2 minutes, for acute hypoxic respiratory failure secondary to COPD exacerbation, concern for aspiration pneumonia, hypercarbic respiratory failure Diagnoses Acute respiratory failure with hypoxia and hypercapnia J96.01; J96.02 COPD exacerbation J44.1 Aspiration pneumonia J69.0 Acquired hypothyroidism E03.9 Hypothyroidism type: acquired
[2023-06-20 22:22] LABS: Troponin(5th) Baseline 30 ng/L (0-10)
[2023-06-20 22:24] LABS: C Reactive Protein 51.3 mg/L (0.0-4.9)
[2023-06-20] MEDS: iohexol 350 mg/mL 500 mL Btl (per mL) IV (22:37)
[2023-06-20 23:11] LABS: Estmated Average Glucose 108; Hemoglobin A1C 5.4 % (4.0-6.0)
[2023-06-20 23:20] LABS: Chol HDL Ratio 2.81 mg/dL (0.0-4.40); Cholesterol 163 mg/dL (0-200); HDL Cholesterol 58 mg/dL (60-100); LDL Cholesterol Calculated 92 mg/dL (50-129); LDL HDL Ratio 1.59 RATIO (0.00-3.22); Thyroid Stimulating Hormone 4.77 uIU/mL (0.27-4.20); Triglycerides 66 mg/dL (0-150)
[2023-06-20] MEDS: gabapentin 300 mg Capsule PO (23:48)
[2023-06-20] MEDS: ALPRAZolam 0.5 mg Tablet 1 MG PO (23:48)
[2023-06-20] MEDS: methadone 10 mg Tablet PO (23:48)
[2023-06-20] MEDS: pantoprazole 40 mg SDV IVP (23:49)
[2023-06-21] VITALS (13 sets, daily range): BP systolic 103–127; BP diastolic 56–71; PULSE 75–90; RESP 15–24; TEMP 36.3–36.6; O2SAT 79–99
[2023-06-21] MEDS: enoxaparin 40 mg/0.4 mL Syringe SUBCUT (00:05)
[2023-06-21 01:05] LABS: Troponin 5 2HR 21.67 ng/L (0-10)
[2023-06-21 01:08] LABS: Troponin 5 2HR Delta -8.33 ABS# (0-10)
[2023-06-21 02:01] LABS: Adenovirus Not Detected (NOT DETECT); Chlamydia Pneumoniae Not Detected (NOT DETECT); Coronavirus 229E,HKU1,NL63,OC4 Not Detected (NOT DETECT); Human Metapneumovirus Not Detected (NOT DETECT); Human Rhinovirus/Enterovirus Not Detected (NOT DETECT); Influenza A Not Detected (NOT DETECT); Influenza A H1 Not Detected (NOT DETECT); Influenza A H1-2009 Not Detected (NOT DETECT); Influenza A H3 Not Detected (NOT DETECT); Influenza B Not Detected (NOT DETECT); Mycoplasma Pneumoniae Not Detected (NOT DETECT); Parainfluenza Virus Type 1 Not Detected (NOT DETECT); Parainfluenza Virus Type 2 Not Detected (NOT DETECT); Parainfluenza Virus Type 3 Detected (NOT DETECT); Parainfluenza Virus Type 4 Not Detected (NOT DETECT); Respiratory Syncytial Virus A Not Detected (NOT DETECT); Respiratory Syncytial Virus B Not Detected (NOT DETECT); SARS-COV-2 Not Detected (NOT DETECT)
--- NOTE | 2023-06-21 03:19 | ECG_ITS ---
[facility] Test Date: 2023-06-21 Pat Name: Mayte Hummel Department: Room: 254 Gender: Female [employer] Program Checker: : 1965 Requested By: Thomas Fernandez Order Number: [id number] Marcelina MD: Lee Ann Blanco M.D. Measurements Intervals Morgan Rate: 80 P: 76 ME: 199 QRS: 78 QRSD: 102 T: 60 QT: 382 QTc: 441 Interpretive Statements SINUS RHYTHM POSSIBLE RIGHT VENTRICULAR CONDUCTION DELAY [RSR (QR) IN V1/V2] PROBABLE INFERIOR MYOCARDIAL INFARCTION , OF INDETERMINATE AGE [35 ms Q WAVE IN II/aVF] PROBABLE ANTEROLATERAL MYOCARDIAL INFARCTION , OF INDETERMINATE AGE [35 ms Q WAVE IN I/aVL/V3-V6] Compared to ECG 06/20/2023 21:02:52 Myocardial infarct finding now present Electronically Signed On 06-21-2023 22:33:49 CDT by Lee Ann Blanco M.D. [id number]
[2023-06-21] MEDS: ipratropium-albuterol 3 mL Neb INHALATION ×4 (03:27→15:17)
[2023-06-21] MEDS: acetaminophen 325 mg Tablet 650 MG PO (03:34)
[2023-06-21 03:48] LABS: Troponin 5 6HR 15.84 ng/L (0-10)
[2023-06-21 03:49] LABS: Troponin 5 6HR Delta -14.16 ng/L (0-12)
[2023-06-21 04:03] LABS: Alanine Aminotransferase 12 U/L (0-33); Albumin Level 3.9 g/dL (3.5-5.2); Alkaline Phosphatase 129 U/L (35-105); Aspartate Amino Transferase 34 U/L (0-32); Blood Urea Nitrogen 7 mg/dL (6-20); Carbon Dioxide 27 mmol/L (22-29); Chloride 99 mmol/L (98-107); Creatinine Clr Calc Pharmacy 86.2621; Globulin 3.4 g/dL (1.3-4.6); Glomerular Filtration Rate 102.7 mL/min (90-130); Glucose 162 mg/dL (65-115); NT Pro B Type Natriuretic Pept 2199 pg/mL (0-125); Osmolality Calculated 282 mOsm/kg (285-295); Sodium 135 mmol/L (136-145); Total Bilirubin 0.2 mg/dL (0.15-1.2); Total Protein 7.3 g/dL (6.6-8.7)
[2023-06-21 04:05] LABS: Anion Gap 14.2 (5-19); Potassium 5.2 mmol/L (3.5-5.1)
[2023-06-21] MEDS: levothyroxine 88 mcg Tablet PO (05:14)
[2023-06-21] MEDS: methylPREDNISolone sod succ 40 mg/mL INJ IVP ×2 (05:14→14:24)
[2023-06-21 06:31] LABS: Add Urine Microscopic? YES; Bacteria Urine 1+ /hpf; Bilirubin Urine Neg (Negative); Blood Urine Trace (Negative); Glucose Urine UA Norm (Normal); Ketones Urine Negative (Negative); Leukocyte Esterase Urine Negative (Negative); Nitrate Urine Negative (Negative); Protein Urine Neg (Negative); RBC Urine 0-4 /hpf (0-2); Specific Gravity, Urine 1.015 (1.005-1.030); Squamous Epithelial Cell Urine 0-4 /hpf (0-5); Urine Appearance Clear (CLEAR); Urine Color Yellow (Yellow); Urobilinogen Urine Neg (Negative); WBC Urine 0-4 /hpf (0-5); pH Urine 5 (5-7)
[2023-06-21] MEDS: budesonide 0.5 mg/2 mL Neb INHALATION (08:10)
[2023-06-21] MEDS: lamoTRIgine 100 mg Tablet 150 MG PO (08:28)
[2023-06-21] MEDS: ALPRAZolam 0.5 mg Tablet 1 MG PO (08:28)
[2023-06-21] MEDS: gabapentin 300 mg Capsule PO ×2 (08:29→14:24)
--- NOTE | 2023-06-21 09:11 | P.PN_ITS ---
Subjective 2 Subjective: positive for parainfluenza virus as per nursing staff, pt took off her telemetry and pulse ox also has poor appetite pt states she feels pretty crappy has an oxygen concentrator at home. Vitals/I&O/Wt Last Vital Signs Temp 97.4 F L 06/21/23 08:00 Pulse 78 06/21/23 08:16 Resp 16 06/21/23 08:00 BP 103/56 06/21/23 08:00 Pulse Ox 99 06/21/23 08:00 O2 Del Method BiPAP 06/21/23 08:00 O2 Flow Rate 2 06/20/23 18:30 FiO2 30 06/21/23 08:00 06/20/23 06/21/23 06/21/23 22:59 06:59 14:59 Intake Total 600 / 600 Balance 600 / 600 Weight last 48 hrs Weight 57.47 kg Weight 58.513 kg Weight 56.699 kg Physical Exam 2 Const: COMMON NORMALS: no acute distress and patient oriented x3 HENMT: COMMON NORMALS: normocephalic HEAD & SCALP: normocephalic Eye: COMMON NORMALS: Equal, round and reactive pupils present and EOMs intact bilaterally PUPIL: Yes Equal, round and reactive pupils present Neck/C-Spine: COMMON NORMALS: full ROM, no lymphadenopathy and no JVD Lymph: LYMPHATIC: no lymphadenopathy noted Resp: COMMON NORMALS: normal respiratory effort, No retractions and No use of accessory muscles AUSCULTATION: crackles and wheezes Cardio: COMMON NORMALS: no JVD, regular rate, regular rhythm, S1 normal heart sound present and S2 normal heart sound present RATE: regular rate RHYTHM: regular rhythm HEART SOUNDS: S1 normal heart sound present and S2 normal heart sound present GI: COMMON NORMALS: Normal to inspection, nondistended, normoactive bowel sounds present, Soft to palpation and non-tender PALPATION: Yes Soft to palpation Extremity: COMMON NORMALS: no calf tenderness and no pedal edema Neuro: COMMON NORMALS: patient oriented x3, CN's II-XII intact bilaterally and moves all extremities Psych: COMMON NORMALS: mental status grossly normal, denies hallucinations, denies homicidal ideation and denies suicidal ideation Data 06/20/23 18:32 06/21/23 03:26 Micro: Microbiology 06/20/23 21:21 Blood Culture - Preliminary Blood SPECIMEN COLLECTED 06/20/23 21:19 Blood Culture - Preliminary Blood SPECIMEN COLLECTED A&P Assessment and plan (1) Acute respiratory failure with hypoxia and hypercapnia: (2) COPD exacerbation: (3) Aspiration pneumonia: (4) Hypothyroid: Qualifiers: Hypothyroidism type: acquired Qualified Code(s): E03.9 - Hypothyroidism, unspecified Plan Acute hypoxic respiratory failure Methadone user ? Likely secondary to COPD ? Possible aspiration pneumonia/aspiration pneumonitis given her episode of nausea vomiting ? Plan ? Monitor on MedSurg ? Continue BiPAP ? Continue Rocephin ? Solu-Medrol 40 mg IV push every 8 hours ? DuoNeb ? Budesonide ? Sputum cultures ? Respiratory viral panel: positive for parainfluenza - CT angiogram the chest ? Continue home levothyroxine ? Continue home alprazolam, gabapentin, Lamictal, methadone ? Lovenox for DVT prophylaxis - Pt does not want to wear telemetry. There is no acute indication for telemetry use. Will discontinue. FULL CODE Continue above mgmt Attestations 2 Medical Necessity Statement*: Patient requires hospitalization, inpatient, greater than 2 minutes, for acute hypoxic respiratory failure secondary to COPD exacerbation, concern for aspiration pneumonia, hypercarbic respiratory failure Diagnoses Acute respiratory failure with hypoxia and hypercapnia J96.01; J96.02 COPD exacerbation J44.1 Aspiration pneumonia J69.0 Acquired hypothyroidism E03.9 Hypothyroidism type: acquired
[2023-06-21] MEDS: methadone 10 mg Tablet PO (09:42)
--- NOTE | 2023-06-21 16:03 | PM.DCS ---
Discharge Providers Date of Admission: 06/20/23 20:09 Date of Discharge: June 21, 2023 Attending Provider at Admission: Thomas Fernandez MD Attending Provider at Discharge: Patti Gayle MD Primary Care Provider: Janna Borges MD Diagnoses at Discharge Discharge Diagnosis (1) Acute respiratory failure with hypoxia and hypercapnia: Status: Resolved (2) COPD exacerbation: Status: Acute (3) Aspiration pneumonia: Status: Resolved (4) Hypothyroid: Status: Acute Qualifiers: Hypothyroidism type: acquired Qualified Code(s): E03.9 - Hypothyroidism, unspecified Reason for Visit Reason for Visit: SOB Hospital Course Hospital Course Patient is a 57-year-old female who was admitted to the hospital for shortness of breath. She was diagnosed with a COPD exacerbation along with coinfection of parainfluenza virus. There was question of possible aspiration pneumonia as well. CTA chest was done which ruled out pulmonary embolism. She did have 5 mm pulmonary nodule for which outpatient follow-up was recommended. Patient to follow-up with her primary care physician for surveillance. Patient was placed on steroids during hospitalization along with antibiotics. Sputum cultures were obtained. Patient was on baseline 3 L nasal cannula. Upon home oxygen evaluation she required 2 to 3 L which is her baseline. She was seen in the morning during routine rounds however towards the afternoon patient stated to the nurse what ever you guys are doing here I can do at home as well. I would like to go home. Since patient was stable and had minimal wheezing and on baseline home oxygen patient was sent home on oral prednisone and Augmentin to cover for possible aspiration pneumonia. She was educated that she must wear her oxygen and secondary to parainfluenza virus and will take a few days before she starts to feel better. Patient stable and in agreement with above plan. Discharge Data Studies Completed and Pending Completed Studies During Hospitalization Category Date Time Status CT angio chest PE protcl [id number] Stat Cat Scan 06/20/23 20:53 Completed XR chest 1V portable [id number] Stat Exams 06/20/23 17:57 Completed Pending at discharge Category Date Time Status Basic Metabolic Panel AM LABS Lab 06/22/23 04:00 Ordered Blood Culture Stat Lab 06/20/23 21:21 Results Complete Blood Count w/Auto AM LABS Lab 06/22/23 04:00 Ordered Magnesium AM LABS Lab 06/22/23 04:00 Ordered Sputum Culture and Gram Stain Stat Lab 06/20/23 12:30 Results Radiology Impressions Chest X-Ray 06/20/23 17:57 IMPRESSION: No evidence for acute cardiopulmonary disease. Chest CTA 06/20/23 20:53 IMPRESSION: 1. Negative for pulmonary embolus. 2. Coronary artery atherosclerotic calcifications. 3. Trace left pleural effusion. 4. Scattered mediastinal lymph nodes and hilar lymph nodes measuring up to 17 mm in the left posterolateral mediastinum, nonspecific. 5. Left adrenal 11.4 mm low-density nodule consistent with a benign adenoma. 6. Emphysematous changes. 7. Right lower lobe mild focal atelectasis versus infiltrate. 8. Right middle lobe 5 mm nodule along the undersurface of the minor fissure, similar to prior exam. Left upper lobe 10.4 mm spiculated pulmonary nodule, somewhat more prominent compared to prior exam. Left upper lobe 5.5 mm anterior segment pulmonary nodule, somewhat more prominent compared to prior exam. For patients at low risk (minimal or absent history of smoking and of other known risk factors), recommend CT Chest at 3-6 months, then consider CT Chest at 18-24 months. For patients at high risk (history of smoking or of other known risk factors), recommend CT Chest at 3-6 months, then CT Chest at 18-24 months. (Reference: Sebastian) 9. Scattered thickened left hilar bronchial wall thickening is seen, nonspecific. COMMENTS: The presence of pulmonary emphysema on CT is an independent risk factor for lung cancer. In the absence of a history or active diagnosis of lung cancer, it is recommended that this patient with emphysema be evaluated for enrollment in a low dose CT lung cancer screening program. REFERENCES: Sebastian Agustin, et al. Guidelines for Management of Incidental Pulmonary Nodules Detected on CT Images: From the Fleischner Society 2017. Radiology. 2017;284(1):228-243. Laboratory Results WBC 13.46 10^3/uL (3.29-11.43) H 06/20/23 18:32 RBC 4.67 10^6/uL (3.85-5.65) 06/20/23 18:32 Hgb 13.40 g/dL (11.27-16.99) 06/20/23 18:32 Hct 41.8 % (36-47) 06/20/23 18:32 MCV 89.5 fl (85-98) 06/20/23 18: MCH 28.7 pg (27-33) 06/20/23 18: MCHC 32.1 g/dL (30-55) 06/20/23 18: RDW 11.9 % (12.1-15.1) L 06/20/23 18: Plt Count 366 10^3/cmm (157-399) 06/20/23 18: MPV 8.9 fL (7.4-10.4) 06/20/23 18: Neut % (Auto) 92.0 % 06/20/23 18: Lymph % (Auto) 3.3 % 06/20/23 18: [place] % (Auto) 3.5 % 06/20/23: Eos % (Auto) 0.5 % 06/20/23: Baso % (Auto) 0.2 % 06/20/23: Neut # (Auto) 12.37 10^3/uL (1.8-7.7) H 06/20/23 18: Lymph # (Auto) 0.5 10^3/uL (0.8-4.8) L 06/20/23 18: [place] # (Auto) 0.5 10^3/uL (0.2-0.9) 06/20/23: Eos # (Auto) 0.1 10^3/uL (0.0-0.8) 06/20/23: Baso # (Auto) 0.0 10^3/uL (0.0-0.1) 06/20/23: Nucleated RBC % (auto) 0 % 06/20/23: Nucleated RBCs # 0.0 /100WBC 06/20/23 18:32 Specimen Type Arterial 06/20/23 18:10 Sample Site Radial, right 06/20/23 18:10 ABG pH 7.30 (7.35-7.45) L 06/20/23 18:10 ABG pCO2 62.2 mmHg (35-45) H* 06/20/23 18:10 ABG pO2 80.3 mmHg (80.0-100.0) 06/20/23 18:10 ABG PO2/FiO2 Ratio 0 06/20/23 18:10 ABG HCO3 30.4 mmol/L (22-26) H 06/20/23 18:10 ABG Base Excess 2.4 mmol/L (-2.0-2.0) H 06/20/23 18:10 Samuel Test Pos 06/20/23 18:10 Hematocrit 40.0 % (37-47) 06/20/23 18:10 Hgb O2 Saturation 92.6 % (95-100) L 06/20/23 18:10 Carboxyhemoglobin 3.1 %THgb (0.4-20.1) 06/20/23 18:10 Methemoglobin 0.4 % (0.4-1.5) 06/20/23 18:10 Total Hemoglobin 13.1 g/dL (12-16) 06/20/23 18:10 O2 Delivery Device Nc 06/20/23 18:10 O2 Liters/Min 4.0 % 06/20/23 18:10 FiO2 36.0 % 06/20/23 18:10 Accounts Payable Specialist ID yorna 06/20/23 18:10 Sodium 135 mmol/L (136-145) L 06/21/23 03:26 Potassium 5.2 mmol/L (3.5-5.1) H 06/21/23 03:26 Chloride 99 mmol/L (98-107) 06/21/23 03:26 Carbon Dioxide 27 mmol/L (22-29) 06/21/23 03:26 Anion Gap 14.2 (5-19) 06/21/23 03:26 BUN 7 mg/dL (6-20) 06/21/23 03:26 Creatinine 0.6 mg/dL (0.5-0.9) 06/21/23 03:26 GFR Calculation 102.7 mL/min (90-130) 06/21/23 03:26 Glucose 162 mg/dL (65-115) H 06/21/23 03:26 Estimat Average Glucose 108 06/20/23 18:32 Hemoglobin A1c 5.4 % (4.0-6.0) 06/20/23 18:32 Calculated Osmolality 282 mOsm/kg (285-295) L 06/21/23 03:26 Lactic Acid 1.6 mmol/L (0.5-2.2) 06/20/23 18:32 Calcium 9.0 mg/dL (8.5-10.5) 06/21/23 03:26 Total Bilirubin 0.2 mg/dL (0.15-1.2) 06/21/23 03:26 AST 34 U/L (0-32) H 06/21/23 03:26 ALT 12 U/L (0-33) 06/21/23 03:26 Alkaline Phosphatase 129 U/L (35-105) H 06/21/23 03:26 Troponin T Baseline 30 ng/L (0-10) H 06/20/23 21:19 Troponin T 120 Minute 21.67 ng/L (0-10) H 06/20/23 00:32 Delta Troponin T -8.33 ABS# (0-10) L 06/20/23 00:32 Troponin T Hi Sens 6Hr 15.84 ng/L (0-10) H 06/21/23 03:26 Troponin T Hi Sens 6Hr Delta -14.16 ng/L (0-12) L 06/21/23 03:26 C-Reactive Protein 51.3 mg/L (0.0-4.9) H 06/20/23 21:19 NT-Pro-B Natriuret Pep 2199 pg/mL (0-125) H 06/21/23 03:26 Total Protein 7.3 g/dL (6.6-8.7) 06/21/23 03:26 Albumin 3.9 g/dL (3.5-5.2) 06/21/23 03:26 Globulin 3.4 g/dL (1.3-4.6) 06/21/23 03:26 Triglycerides 66 mg/dL (0-150) 06/20/23 18:32 Cholesterol 163 mg/dL (0-200) 06/20/23 18:32 LDL Cholesterol, Calc 92 mg/dL (50-129) 06/20/23 18:32 HDL Cholesterol 58 mg/dL (60-100) L 06/20/23 18:32 LDL/HDL Ratio 1.59 RATIO (0.00-3.22) 06/20/23 18:32 Cholesterol/HDL Ratio 2.81 mg/dL (0.0-4.40) 06/20/23 18:32 Procalcitonin 0.20 ng/mL (0-0.5) 06/20/23 21:19 TSH 4.77 uIU/mL (0.27-4.20) H 06/20/23 18:32 Urine Color Yellow (Yellow) 06/20/23 05:18 Urine Appearance Clear (CLEAR) 06/20/23 05:18 Urine pH 5 (5-7) 06/20/23 05:18 Ur Specific [place] 1.015 (1.005-1.030) 06/20/23 05:18 Urine Protein Neg (Negative) 06/20/23 05:18 Urine Glucose (UA) Norm (Normal) 06/20/23 05:18 Urine Ketones Negative (Negative) 06/20/23 05:18 Urine Blood Trace (Negative) H 06/20/23 05:18 Urine Nitrate Negative (Negative) 06/20/23 05:18 Urine Bilirubin Neg (Negative) 06/20/23 05:18 Urine Urobilinogen Neg mg/dL (Negative) 06/20/23 05:18 Ur Leukocyte Esterase Negative (Negative) 06/20/23 05:18 Urine RBC 0-4 /hpf (0-2) H 06/20/23 05:18 Urine WBC 0-4 /hpf (0-5) H 06/20/23 05:18 Ur Squamous Epith Cells 0-4 /hpf (0-5) H 06/20/23 05:18 Amorphous Sediment Not Reportable 06/20/23 05:18 Urine Bacteria 1+ /hpf (NONE) H 06/20/23 05:18 Adenovirus (PCR) Not detected (NOT DETECT) 06/20/23 02:11 C. pneumoniae DNA (PCR) Not detected (NOT DETECT) 06/20/23 02:11 Coronavirus 229E (PCR) Not detected (NOT DETECT) 06/20/23 02:11 Human Metapneumovir PCR Not detected (NOT DETECT) 06/20/23 02:11 Influenza A (H1) PCR Not detected (NOT DETECT) 06/20/23 02:11 Influ A (H1/09) PCR Not detected (NOT DETECT) 06/20/23 02:11 Influenza A (H3) PCR Not detected (NOT DETECT) 06/20/23 02:11 Influenza Type A (PCR) Not detected (NOT DETECT) 06/20/23 02:11 Influenza Type B (PCR) Not detected (NOT DETECT) 06/20/23 02:11 M. pneumoniae (PCR) Not detected (NOT DETECT) 06/20/23 02:11 Parainfluenza 1 (PCR) Not detected (NOT DETECT) 06/20/23 02:11 Parainfluenza 2 (PCR) Not detected (NOT DETECT) 06/20/23 02:11 Parainfluenza 3 (PCR) Detected (NOT DETECT) A 06/20/23 02:11 Parainfluenza 4 (PCR) Not detected (NOT DETECT) 06/20/23 02:11 RSV Type A (PCR) Not detected (NOT DETECT) 06/20/23 02:11 RSV Type B (PCR) Not detected (NOT DETECT) 06/20/23 02:11 Entero/Rhino (PCR) Not detected (NOT DETECT) 06/20/23 02:11 SARS-CoV-2 (PCR) Not detected (NOT DETECT) 06/20/23 02:11 Vitals Last Vital Signs Temp 98 F 06/21/23 12:00 Pulse 90 06/21/23 15:21 Resp 18 06/21/23 15:18 BP 118/71 06/21/23 12:00 Pulse Ox 97 06/21/23 15:18 O2 Del Method Nasal Cannula 06/21/23 15:18 O2 Flow Rate 3 06/21/23 15:18 FiO2 30 06/21/23 08:00 Discharge Plan Discharge Patient Disposition: Home Condition: Stable Prescriptions: New amoxicillin-pot clavulanate 875-125 mg tablet 1 tab PO BID 7 Days Qty: 14 0RF prednisone 20 mg tablet 40 mg PO DAILY 5 Days Qty: 10 0RF Continued clobetasol 0.05 % ointment 1 applic topical BID 30 Days Qty: 45 5RF alprazolam 1 mg tablet 1 mg PO TID PRN (Reason: anxiety) 30 Days Qty: 90 5RF Combivent Respimat 20-100 mcg/actuation mist 1 puff INHALATION QID PRN (Reason: breathing) Qty: 4 5RF lamotrigine 150 mg tablet 150 mg PO BID Qty: 60 5RF ipratropium-albuterol 0.5 mg-3 mg(2.5 mg base)/3 mL solution for nebulization See Rx Instructions .ROUTE .COMPLEX Qty: 540 0RF Dose Instruction: USE 1 VIAL IN NEBILIZER TWICE DAILY NEEDED FOR SHORTNESS OF BREATH AND INABILITY TO USE INHALER Rx Instructions: USE 1 VIAL IN NEBILIZER TWICE DAILY NEEDED FOR SHORTNESS OF BREATH AND INABILITY TO USE INHALER albuterol sulfate [Ventolin HFA] 90 mcg/actuation HFA aerosol inhaler 2 puff INHALATION Q3H 30 Days Qty: 18 5RF methadone 10 mg tablet 10 mg PO Q12H 30 Days Qty: 60 0RF gabapentin 300 mg capsule See Rx Instructions .ROUTE .COMPLEX Qty: 90 5RF Dose Instruction: TAKE 1 CAPSULE BY MOUTH THREE TIMES DAILY FOR PAIN Rx Instructions: TAKE 1 CAPSULE BY MOUTH THREE TIMES DAILY FOR PAIN levothyroxine 88 mcg tablet See Rx Instructions .ROUTE .COMPLEX Qty: 90 2RF Dose Instruction: TAKE 1 TABLET BY MOUTH EVERY DAY Rx Instructions: TAKE 1 TABLET BY MOUTH EVERY DAY No Action ipratropium-albuterol 0.5 mg-3 mg(2.5 mg base)/3 mL solution for nebulization 3 ml inhalation Q4H PRN (Reason: shortness of breath or wheezing) Qty: 90 0RF Discharge Orders: Discharge Order (Routine); Ordered 06/21/23 Ordered By: Patti Gayle Referrals: AjayrDanny MD [Physician] - 2 weeks (We have notified your physician's clinic of the need for a follow-up appointment to be scheduled. If you have not heard from them within the next 2 business days, please call them directly. ) Janna Borges MD [Primary Care Provider] - 4-7 days (We have notified your physician's clinic of the need for a follow-up appointment to be scheduled. If you have not heard from them within the next 2 business days, please call them directly. ) Discharge Diet: Regular Discharge Activity: Resume usual activity and Oxygen as instructed Patient Instructions: Prednisone (By mouth), Amoxicillin/Clavulanate Potassium (By mouth), COPD (Chronic Obstructive Pulmonary Disease) (GEN), COPD Stoplight, Opioid Safety Discharge Attestations Time Spent in Discharge Care*: greater than 30 min Quality Metrics Clinical Quality Measures [ No reported AMI, CVA or VTE this stay] Coding Level of Care Code Acute Code for Chg Fwd Diagnoses Acute respiratory failure with hypoxia and hypercapnia J96.01; J96.02 COPD exacerbation J44.1 Aspiration pneumonia J69.0 Acquired hypothyroidism E03.9 Hypothyroidism type: acquired
== END 2023-06-21 16:23 | disposition home or self-care (01) | DRG 177 ==
LOC: ER 19:18 → MEDSURG 21:04
PROVIDERS: Admitting Provider Family Medicine; Emergency Provider Emergency Medicine; PCP Family Medicine; Visit Provider Internal Medicine
DX: J69.0 Pneumonitis due to inhalation of food and vomit (principal); J96.21 Acute and chronic respiratory failure with hypoxia; J96.22 Acute and chronic respiratory failure with hypercapnia; F11.20 Opioid dependence, uncomplicated; J44.1 Chronic obstructive pulmonary disease with (acute) exacerbation; M50.00 Cervical disc disorder with myelopathy, unspecified cervical region; M51.04 Intervertebral disc disorders with myelopathy, thoracic region; E03.9 Hypothyroidism, unspecified; F60.3 Borderline personality disorder; G89.29 Other chronic pain; F41.9 Anxiety disorder, unspecified; I10 Essential (primary) hypertension; K21.9 Gastro-esophageal reflux disease without esophagitis; M48.061 Spinal stenosis, lumbar region without neurogenic claudication; M54.16 Radiculopathy, lumbar region; M19.90 Unspecified osteoarthritis, unspecified site; G62.9 Polyneuropathy, unspecified; F31.9 Bipolar disorder, unspecified; B34.8 Other viral infections of unspecified site; R91.1 Solitary pulmonary nodule; Z99.81 Dependence on supplemental oxygen; Z87.891 Personal history of nicotine dependence; Z85.21 Personal history of malignant neoplasm of larynx; Z85.118 Personal history of other malignant neoplasm of bronchus and lung; Z90.2 Acquired absence of lung [part of]
CPT/HCPCS: 36415; 36600; 71045; 71275; 80048; 80053; 80061; 81001; 82805; 83036; 83605; 83880; 84145; 84443; 84484; 85025; 86140; 87040; 87070; 87077; 87186; 87205; 87486; 87581; 87633; 93005; 94003; 94640; 94660; 94760; 96365; 96367; 96372; 96375; 99291; C9113; J0696; J1650; J2919; J3490; J7040; J7626; Q9967

== ENCOUNTER 2023-06-23 07:20 | Emergency (ER) | payer MEDICARE, MEDICAID, SELFPAY ==
[2023-06-23] VITALS (9 sets, daily range): BP systolic 127–137; BP diastolic 71–83; PULSE 78–88; RESP 16–26; TEMP 36.7; O2SAT 92–99; BMI 21.0
--- NOTE | 2023-06-23 07:24 | XRR_ITS ---
PROCEDURE INFORMATION: Exam: XR Chest Exam date and time: 06/23/2023 7:56 AM Age: 57 years old Clinical indication: Cough and dyspnea and shortness of breath; Prior surgery; Surgery date: 6+ months; Surgery type: Luis Armando resection; Patient HX: HX of esophageal and lung; Additional info: Dyspnea/cough TECHNIQUE: Imaging protocol: Radiologic exam of the chest. Views: 1 view. COMPARISON: CT angio chest PE protcl [id number] 12/15/2023 22:31 FINDINGS: Lungs: The lungs are hyperinflated with COPD changes. No acute infiltrates identified. Scattered old calcified granulomas. The patient's known spiculated left perihilar nodule cannot be clearly seen by plain radiographs. Pleural spaces: No pleural effusions or evidence of a pneumothorax. Heart/Mediastinum: The heart size is normal. Bones/joints: Unremarkable. XR/XR chest 1V portable [id number] IMPRESSION: COPD but no radiographic evidence of acute cardiopulmonary disease
--- NOTE | 2023-06-23 07:28 | ECG_ITS ---
[facility] Test Date: 2023-06-23 Pat Name: Mayte Hummel Department: Room: Gender: Female Safety And Health Consultant: : 1965 Requested By: Camilo Easley Order Number: [id number] Marcelina MD: Uvaldo Polanco M.D. Measurements Intervals [place] Rate: 85 P: 76 SC: 198 QRS: 73 QRSD: 89 T: 67 QT: 357 QTc: 427 Interpretive Statements SINUS RHYTHM POSSIBLE RIGHT VENTRICULAR CONDUCTION DELAY [RSR (QR) IN V1/V2] Compared to ECG 06/21/2023 03:19:03 Myocardial infarct finding no longer present Electronically Signed On 06-23-2023 17:47:47 CDT by Uvaldo Polanco M.D. [id number]
[2023-06-23 08:06] LABS: Basophils % 0.1 %; Eosinophils % 0.4 %; Hematocrit 39.3 % (36-47); Lymphocytes # 0.7 10^3/uL (0.8-4.8); Lymphocytes % 9.4 %; Mean Corpuscular HGB Conc 31.8 g/dL (30-55); Mean Corpuscular Hemoglobin 29.1 pg (27-33); Mean Corpuscular Volume 91.6 fl (85-98); Mean Platelet Volume 8.7 fL (7.4-10.4); Monocytes # 0.7 10^3/uL (0.2-0.9); Monocytes % 9.6 %; Neutrophils # 5.68 10^3/uL (1.8-7.7); Neutrophils % 79.9 %; Nucleated Red Blood Cells % 0 %; Platelet Count 308 10^3/cmm (157-399); Red Blood Count 4.29 10^6/uL (3.85-5.65); Red Cell Distribution Width 12.1 % (12.1-15.1); White Blood Count 7.11 10^3/uL (3.29-11.43)
--- NOTE | 2023-06-23 08:12 | ED_ITS ---
HPI - SOB/Dyspnea 2 General: Chief Complaint: Shortness of Breath/Dyspnea Stated Complaint: SOB Time Seen by Provider: 06/23/23 07:24 Source: patient Mode of arrival: ambulatory History of Present Illness: HPI Narrative: 57-year-old female presents emergency ro om complaining of shortness of breath. She was recently hospitalized discharged 2 days ago she had parainfluenza she also has a history of pharyngeal cancer. She had CTA chest done last time and there were some nodules there that they recommended follow-up on. In talking the patient she perceived this as is if she had a lung cancer. According to the CT report is reviewed there is just concerned that these nodules be closely followed but were not definitive and did not even recommend biopsy at this point. No hemoptysis no chest pain. She was getting up and bringing her dogs out did not have her oxygen on and got very short of breath and weak felt like she was going to pass out MD elicited complaint: shortness of breath and cough Pertinent past history: COPD Context: recent illness Timing: intermittent Severity: moderate Exacerbating factors: exertion and coughing Relieving factors: oxygen, rest and bronchodilators Known history of: COPD Associated symptoms: Reports chest congestion; Deny abdominal pain, chest pain, cough, diaphoresis, dizziness, extremity pain, fever(s), hemoptysis, lightheadedness, myalgias, nausea, orthopnea, palpitations, paresthesias, polydipsia, polyuria, rash, sense of impending doom, syncope or vomiting Treatment prior to arrival: oxygen and bronchodilator Related Data: Home oxygen amount: 3 liters (2-3) Review of Systems 2 Const: Reports: fatigue and malaise; Denies: fever(s), chills or diaphoresis Card: Denies: chest pain, palpitations, lightheadedness, syncope or orthopnea Resp: Reports: dyspnea, non-productive cough, wheezing and chest congestion; Denies: hemoptysis GI: Denies: abdominal pain, nausea or vomiting : Denies: dysuria, urinary frequency or urinary urgency Musc: Denies: extremity pain Skin/Breast: Denies: rash Neuro: Denies: dizziness Endo: Denies: polyuria or polydipsia PFSH ED 2 PFSH: Medical History Vitamin D deficiency Essential hypertension GERD with esophagitis COPD, mild Chronic pruritic rash in adult Thoracic disc disease Spinal stenosis of lumbar region with radiculopathy Intervertebral cervical disc disorder with myelopathy, cervical region Intertriginous candidiasis Osteoarthritis, chronic Thoracic disc disease with myelopathy Hypothyroid Moderate persistent reactive airway disease with wheezing with acute exacerbation Polyneuropathy Bipolar disorder (manic depression) History of throat cancer Surgical History Hx of tubal ligation (~1993) Hx of section (~1993) Hx of oral surgery Status post partial removal of lung Left upper lobe lung resection, 11/2017 Family History Grandfather Colon cancer maternal---dx age in 60s Mother Diabetes Thyroid disease Denies family history of Ovarian cancer Heart disease Breast cancer Bleeding disorder Hypertension Uterine cancer Stroke Social History Smoking and tobacco/nicotine status: former use of tobacco/nicotine Alcohol intake: never Substance/Drug Use: never Additional social history: - Tobacco use: former-- quit January 2018 Alcohol use: denies Drug use: denies Adopted: No Household members: none Housing: Manufactured/Mobile home Marital status: / Current occupational status: unemployed Do you think of yourself as: Straight/Heterosexual Physical Exam 2 Const: GENERAL APPEARANCE: cooperative and comfortable O RIENTATION/CONSCIOUSNESS: Yes awake, Yes oriented to person, Yes oriented to place and Yes oriented to time HENMT: COMMON NORMALS: normocephalic, atraumatic and hearing grossly normal bilaterally HEAD & SCALP: normocephalic and atraumatic Resp: AUSCULTATION: rhonchi and wheezes Cardio: COMMON NORMALS: regular rate, regular rhythm and No murmurs present (Cardio) RATE: regular rate RHYTHM: regular rhythm GI: COMMON NORMALS: Soft to palpation and No hepatosplenomegaly present A USCULTATION: Yes normoactive bowel sounds PALPATION: Yes Soft to palpation, No Tenderness to palpation present (GI), No Guarding due to palpation present (GI) and Yes No hepatosplenomegaly present Extremity: COMMON NORMALS: normal to inspection, capillary refill normal, no clubbing, cyanosis or edema, no calf tenderness and no pedal edema Neuro: SENSORIUM/ORIENTATION: Yes oriented to person, Yes oriented to place and Yes oriented to time Skin: COMMON NORMALS: no rashes or lesions noted GENERAL SKIN EXAM: no rashes or lesions noted Course 2 Vital Signs: Vital signs: Vital Signs Temperature 98.1 F 06/23/23 07:20 Pulse Rate 84 06/23/23 13:32 Respiratory Rate 18 06/23/23 13:32 Blood Pressure 129/81 06/23/23 13:32 Pulse Oximetry 98 06/23/23 13:32 Oxygen Delivery Me thod Nasal Cannula 06/23/23 13:32 Oxygen Flow Rate 2 06/23/23 08:51 MDM - SOB/Dyspnea Medical Decision Making Patient presents with complaints of shortness of breath however she is not on her oxygen at home. She was exerting herself mildly when her symptoms occurred while on oxygen here she maintains her sats normally we did have him do a home oxygen eval to see confirm her oxygen needs with ambulation at 3 L she maintains her sats well. At rest she does well on just 2 L. Will discharge patient home recommend that she be on 2 L at rest and can increase to 3 L with activity. She did recently have a hospitalization for parainfluenza. She did respond well to the nebulizers here in the emergency room. Gave her a prescription for DuoNebs to use at home continue the other medications she was discharged home with. We also discussed possibility of rehab if she felt she was not able to manage however she would prefer to continue to Medical Records I reviewed the patient's medical records. Lab Data I reviewed the patient's lab results. 06/23/23 07:43 06/23/23 07:43 Labs/Radiology: Radiology Impressions Chest X-Ray 06/23/23 07:24 IMPRESSION: COPD but no radiographic evidence of acute cardiopulmonary disease Laboratory Results WBC 7.11 10^3/uL (3.29-11.43) 06/23/23 07:43 RBC 4.29 10^6/uL (3.85-5.65) 06/23/23 07:43 Hgb 12.50 g/dL (11.27-16.99) 06/23/23 07:43 Hct 39.3 % (36-47) 06/23/23 07:43 MCV 91.6 fl (85-98) 06/23/23 07:43 MCH 29.1 pg (27-33) 06/23/23 07:43 MCHC 31.8 g/dL (30-55) 06/23/23 07:43 RDW 12.1 % (12.1-15.1) 06/23/23 07:43 Plt Count 308 10^3/cmm (157-399) 06/23/23 07:43 MPV 8.7 fL (7.4-10.4) 06/23/23 07:43 Neut % (Auto) 79.9 % 06/23/23 07:43 Lymph % (Auto) 9.4 % 06/23/23 07:43 [place] % (Auto) 9.6 % 06/23/23 07:43 Eos % (Auto) 0.4 % 06/23/23 07:43 Baso % (Auto) 0.1 % 06/23/23 07:43 Neut # (Auto) 5.68 10^3/uL (1.8-7.7) 06/23/23 07:43 Lymph # (Auto) 0.7 10^3/uL (0.8-4.8) L 06/23/23 07:43 [place] # (Auto) 0.7 10^3/uL (0.2-0.9) 06/23/23 07:43 Eos # (Auto) 0.0 10^3/uL (0.0-0.8) 06/23/23 07:43 Baso # (Auto) 0.0 10^3/uL (0.0-0.1) 06/23/23 07:43 Nucleated RBC % (auto) 0 % 06/23/23 07:43 Nucleated RBCs # 0.0 /100WBC 06/23/23 07:43 Specimen Type Arterial 06/23/23 08:25 Sample Site Radial, right 06/23/23 08:25 ABG pH 7.35 (7.35-7.45) 06/23/23 08:25 ABG pCO2 66.9 mmHg (35-45) H* 06/23/23 08:25 ABG pO2 86.5 mmHg (80.0-100.0) 06/23/23 08:25 ABG HCO3 37.0 mmol/L (22-26) H 06/23/23 08:25 ABG O2 Saturation 97.6 06/23/23 08:25 ABG Base Excess 9.1 mmol/L (-2.0-2.0) H 06/23/23 08:25 Samuel Test Pos 06/23/23 08:25 A-a O2 Gradient Not Reportable 06/23/23 08:25 Hematocrit 37.7 % (37-47) 06/23/23 08:25 Hgb O2 Saturation 95.4 % (95-100) 06/23/23 08:25 Carboxyhemoglobin 1.8 %THgb (0.4-20.1) 06/23/23 08:25 Methemoglobin 0.4 % (0.4-1.5) 06/23/23 08:25 Total Hemoglobin 12.3 g/dL (12-16) 06/23/23 08:25 Sodium 138.0 mmol/L (131-143) 06/23/23 08:25 Potassium 4.0 mmol/L (3.5-5.0) 06/23/23 08:25 Glucose 96.0 mg/dL (70-115) 06/23/23 08:25 Ionized Calcium 1.2 mmol/L (1.1-1.4) 06/23/23 08:25 O2 Delivery Device Nc 06/23/23 08:25 O2 Liters/Min 2.0 % 06/23/23 08:25 Loft Worker Apprentice ID [place] 06/23/23 08:25 Sodium 136 mmol/L (136-145) 06/23/23 07:43 Potassium 3.9 mmol/L (3.5-5.1) 06/23/23 07:43 Chloride 95 mmol/L (98-107) L 06/23/23 07:43 Carbon Dioxide 33 mmol/L (22-29) H 06/23/23 07:43 Anion Gap 11.9 (5-19) 06/23/23 07:43 BUN 11 mg/dL (6-20) 06/23/23 07:43 Creatinine 0.6 mg/dL (0.5-0.9) 06/23/23 07:43 GFR Calculation 102.7 mL/min (90-130) 06/23/23 07:43 Glucose 103 mg/dL (65-115) 06/23/23 07:43 Calculated Osmolality 282 mOsm/kg (285-295) L 06/23/23 07:43 Calcium 8.9 mg/dL (8.5-10.5) 06/23/23 07:43 Total Bilirubin 0.2 mg/dL (0.15-1.2) 06/23/23 07:43 AST 42 U/L (0-32) H 06/23/23 07:43 ALT 14 U/L (0-33) 06/23/23 07:43 Alkaline Phosphatase 99 U/L (35-105) 06/23/23 07:43 Troponin T Baseline 47 ng/L (0-10) H 06/23/23 07:43 Total Protein 7.2 g/dL (6.6-8.7) 06/23/23 07:43 Albumin 3.6 g/dL (3.5-5.2) 06/23/23 07:43 Globulin 3.6 g/dL (1.3-4.6) 06/23/23 07:43 All radiology interpretation(s) finalized by discharge Discharge Plan Discharge Patient Disposition: Home Clinical Impression: COPD exacerbation, Parainfluenza infection Condition: Stable Prescriptions: New ipratropium-albuterol 0.5 mg-3 mg(2.5 mg base)/3 mL solution for nebulization 3 ml inhalation Q4H PRN (Reason: shortness of breath or wheezing) Qty: 90 0RF No Action clobetasol 0.05 % ointment 1 applic topical BID 30 Days Qty: 45 5RF alprazolam 1 mg tablet 1 mg PO TID PRN (Reason: anxiety) 30 Days Qty: 90 5RF Combivent Respimat 20-100 mcg/actuation mist 1 puff INHALATION QID PRN (Reason: breathing) Qty: 4 5RF lamotrigine 150 mg tablet 150 mg PO BID Qty: 60 5RF ipratropium-albuterol 0.5 mg-3 mg(2.5 mg base)/3 mL solution for nebulization See Rx Instructions .ROUTE .COMPLEX Qty: 540 0RF Dose Instruction: USE 1 VIAL IN NEBILIZER TWICE DAILY NEEDED FOR SHORTNESS OF BREATH AND INABILITY TO USE INHALER Rx Instructions: USE 1 VIAL IN NEBILIZER TWICE DAILY NEEDED FOR SHORTNESS OF BREATH AND INABILITY TO USE INHALER albuterol sulfate [Ventolin HFA] 90 mcg/actuation HFA aerosol inhaler 2 puff INHALATION Q3H 30 Days Qty: 18 5RF methadone 10 mg tablet 10 mg PO Q12H 30 Days Qty: 60 0RF gabapentin 300 mg capsule See Rx Instructions .ROUTE .COMPLEX Qty: 90 5RF Dose Instruction: TAKE 1 CAPSULE BY MOUTH THREE TIMES DAILY FOR PAIN Rx Instructions: TAKE 1 CAPSULE BY MOUTH THREE TIMES DAILY FOR PAIN levothyroxine 88 mcg tablet See Rx Instructions .ROUTE .COMPLEX Qty: 90 2RF Dose Instruction: TAKE 1 TABLET BY MOUTH EVERY DAY Rx Instructions: TAKE 1 TABLET BY MOUTH EVERY DAY amoxicillin-pot clavulanate 875-125 mg tablet 1 tab PO BID 7 Days Qty: 14 0RF prednisone 20 mg tablet 40 mg PO DAILY 5 Days Qty: 10 0RF Discharge Orders: Discharge ED (Routine); Ordered 06/23/23 Ordered By: Camilo Alvarez Referrals: Janna Borges MD [Primary Care Provider] - Discharge Diet: Usual diet Discharge Activity: Resume usual activity Patient Instructions: Opioid Safety, Pain Management Activity Restrictions/Additional Instructions: Thank you for choosing [facility] for your healthcare needs today. Please realize this is an emergency room and that we are providing you with a medical screening exam and this may not be complete and all inclusive of all the testing and or work up that you may need to determine your ailment or severity of your illness. It is very important that you follow up as instructed or that you return to the Emergency Department should you have concerns or if your condition changes or worsens in any way. You were seen today with complaints shortness of breath your oxygen sat remains well compensated on your usual oxygen. You should continue on oxygen at 3 L/min 24 hours a day. Additionally recommend you complete the steroid taper that you were given at discharge 2 days ago and the antibiotic course. [place] albuterol ipratropium bromide nebulizers as needed. Coding Level of Care Code ED Sterile Processing Technician for Tracey Xiong
[2023-06-23 08:20] LABS: Alanine Aminotransferase 14 U/L (0-33); Albumin Level 3.6 g/dL (3.5-5.2); Alkaline Phosphatase 99 U/L (35-105); Anion Gap 11.9 (5-19); Aspartate Amino Transferase 42 U/L (0-32); Blood Urea Nitrogen 11 mg/dL (6-20); Calcium 8.9 mg/dL (8.5-10.5); Carbon Dioxide 33 mmol/L (22-29); Chloride 95 mmol/L (98-107); Globulin 3.6 g/dL (1.3-4.6); Glomerular Filtration Rate 102.7 mL/min (90-130); Glucose 103 mg/dL (65-115); Osmolality Calculated 282 mOsm/kg (285-295); Potassium 3.9 mmol/L (3.5-5.1); Sodium 136 mmol/L (136-145); Total Bilirubin 0.2 mg/dL (0.15-1.2); Total Protein 7.2 g/dL (6.6-8.7); Troponin(5th) Baseline 47 ng/L (0-10)
[2023-06-23 08:36] LABS: ABG PCO2 66.9 mmHg (35-45); ABG PH Result 7.35 (7.35-7.45); Arterial Blood Gas Hematocrit 37.7 % (37-47); Base Excess ABG 9.1 mmol/L (-2.0-2.0); Blood Gas Allen Test Pos; Blood Gas Operator Identificat WALCI; Blood Gas Sample Site Radial, right; Blood Gas Sample Type Arterial; Carboxyhemoglobin 1.8 %THgb (0.4-20.1); HGB O2 Sat 95.4 % (95-100); Ionized Calcium Level - ABG 1.2 mmol/L (1.1-1.4); Methemoglobin 0.4 % (0.4-1.5); Oxygen Device NC; Oxygen Saturation ABG 97.6; PO2 ABG 86.5 mmHg (80.0-100.0); Total Hemoglobin 12.3 g/dL (12-16)
[2023-06-23] MEDS: ipratropium-albuterol 3 mL Neb INHALATION (08:53)
== END 2023-06-23 13:33 | disposition home or self-care (01) ==
PROVIDERS: Emergency Provider Family Medicine; PCP Family Medicine
DX: J44.1 Chronic obstructive pulmonary disease with (acute) exacerbation (principal); B34.8 Other viral infections of unspecified site; Z87.891 Personal history of nicotine dependence; I10 Essential (primary) hypertension; Z85.89 Personal history of malignant neoplasm of other organs and systems
CPT/HCPCS: 36415; 36600; 71045; 80051; 80053; 82330; 82805; 84484; 85025; 93005; 94640; 99285

== ENCOUNTER → 2024-09-19 12:00 | Outpatient (BNVA) | payer MEDICARE, MEDICAID, SELFPAY | PROVIDERS: PCP Family Medicine; Visit Provider Family Medicine | DX: Z90.2 Acquired absence of lung [part of] (principal) | CPT/HCPCS: 80053; 85007; 85027 ==

== ENCOUNTER → 2024-12-07 14:22 | Outpatient (BNVA) | payer MEDICARE, MEDICAID, SELFPAY | PROVIDERS: PCP Family Medicine; Visit Provider Family Medicine | DX: J06.9 Acute upper respiratory infection, unspecified (principal) | CPT/HCPCS: 80053; 85025; 87400; 87426 ==